=== PATIENT | female | born 1990 | race Hispanic/Latino ===

== ENCOUNTER 2017-07-27 14:39 | Emergency (ER) | payer MEDICAID, OTHER ==
[~2017-07-27 14:39] MED LIST: GLYB5TAB8 PO; PREN1TAB26 PO
[2017-07-27 15:11] LABS: HCG,QUAL RESULT POSITIVE (NEGATIVE)
[2017-07-27 15:12] LABS: APPEARANCE,URINE Clear (CLEAR); BILIRUBIN,URINE Negative (NEGATIVE); COLOR,URINE Yellow (YELLOW); GLUCOSE, URINE (UA) Negative (NEGATIVE); KETONES,URINE Negative (NEGATIVE); LEUKOCYTE ESTERASE ,URINE Small (NEGATIVE); NITRATE,URINE Negative (NEGATIVE); OCCULT BLOOD,URINE Small (NEGATIVE); PROTEIN,URINE Negative (NEGATIVE); UROBILINOGEN,URINE 0.2 mg/dL (0.2-1.0)
[2017-07-27 15:13] LABS: BASOPHILS % (AUTO) 0.8 % (0.0-5.0); EOSINOPHILS % (AUTO) 1.2 % (0.0-8.0); HEMATOCRIT 36.6 % (36-48); LYMPHOCYTES % (AUTO) 32.5 % (21.0-51.0); MEAN CORPUSCULAR HEMOGLOBIN 31.8 pg (27.0-33.0); MEAN CORPUSCULAR VOLUME 90.9 fL (79-99); NEUTROPHILS % (AUTO) 57.5 % (40.0-77.0); NUCLEATED RED BLOOD CELLS 0.1 % (0.0-0.19); PLATELET COUNT (AUTO) 320 K/uL (130-400); RED BLOOD CELL COUNT(AUTO) 4.03 MIL/uL (4.00-5.50); RED CELL DISTRIBUTION WIDTH 12.2 % (11.0-15.5); WHITE BLOOD COUNT (AUTO) 12.6 K/uL (4.8-10.8)
[2017-07-27 15:22] LABS: CREATININE 0.6 mg/dL (0.5-1.5); POTASSIUM 3.5 mmol/L (3.5-5.1)
[2017-07-27 15:25] LABS: BACTERIA,URINE Rare /HPF (None Seen); RBC,URINE 0-1 /HPF (0-1); SQUAMOUS EPITHELIAL CELL,UR Rare /LPF (0-2); WBC,URINE 0-1 /HPF (0-1)
== END 2017-07-27 16:08 | disposition home or self-care (01) ==
LOC: EDH 14:39
DX: O20.0 Threatened abortion (principal); Z3A.01 Less than 8 weeks gestation of pregnancy; Z90.49 Acquired absence of other specified parts of digestive tract
CPT/HCPCS: 36415; 76801; 80048; 81001; 81025; 84702; 85025; 86900; 86901

== ENCOUNTER 2017-11-11 18:21 | Observation (INO) | payer MEDICAID ==
[~2017-11-11] VITALS: Ht 160 cm; Wt 50.8 kg
[2017-11-11 18:57] LABS: APPEARANCE,URINE Clear (CLEAR); BILIRUBIN,URINE Negative (NEGATIVE); COLOR,URINE Yellow (YELLOW); GLUCOSE, URINE (UA) >=1000 mg/dL (NEGATIVE); KETONES,URINE Trace mg/dL (NEGATIVE); LEUKOCYTE ESTERASE ,URINE Trace (NEGATIVE); NITRATE,URINE Negative (NEGATIVE); OCCULT BLOOD,URINE Trace (NEGATIVE); PH,URINE 5.5 (5.0-8.0); PROTEIN,URINE Negative (NEGATIVE); UROBILINOGEN,URINE 0.2 mg/dL (0.2-1.0)
[2017-11-11 20:02] LABS: BACTERIA,URINE Few /HPF (None Seen); RBC,URINE None Seen /HPF (0-1); WBC,URINE 0-1 /HPF (0-1)
[2017-11-11] MEDS ORDERED: LACTATED RINGERS 1000ML 1,000 ML IV SCH (20:15)
[2017-11-11] MEDS ORDERED: LACTATED RINGERS 1000ML 1,000 ML IV ONE (20:38)
[2017-11-11 20:45] LABS: BASOPHILS % (AUTO) 0.7 % (0.0-5.0); EOSINOPHILS % (AUTO) 1.4 % (0.0-8.0); HEMATOCRIT 36.7 % (36-48); LYMPHOCYTES % (AUTO) 24.8 % (21.0-51.0); MEAN CORPUSCULAR HGB CONC 34.4 g/dL (32.0-36.0); MEAN CORPUSCULAR VOLUME 90.3 fL (79-99); MONOCYTES % (AUTO) 8.5 % (3.0-13.0); NEUTROPHILS % (AUTO) 64.6 % (40.0-77.0); PLATELET COUNT (AUTO) 238 K/uL (130-400); RED BLOOD CELL COUNT(AUTO) 4.07 MIL/uL (4.00-5.50); RED CELL DISTRIBUTION WIDTH 12.7 % (11.0-15.5); WHITE BLOOD COUNT (AUTO) 9.4 K/uL (4.8-10.8)
[2017-11-11 20:59] LABS: ALBUMIN 2.8 g/dL (3.5-5.0); BILIRUBIN,DIRECT 0.1 mg/dL (0.0-0.3); BILIRUBIN,TOTAL 0.2 mg/dL (0.2-1.0); TOTAL PROTEIN, SERUM 7.2 g/dL (6.0-8.3)
[2017-11-11] MEDS ORDERED: MAG HYDROX/AL HYDROX/SIMETH ES 30 ML SUSP UDCUP PO SCH (21:45)
[2017-11-11] MEDS ORDERED: MAG HYDROX/AL HYDROX/SIMETH ES 30 ML SUSP UDCUP ONE (21:46)
== END 2017-11-12 00:11 | disposition home or self-care (01) ==
LOC: EDH 18:21 → LDH 18:38
PROVIDERS: ADMIT Obstetrics & Gynecology; ATTEND Obstetrics & Gynecology
DX: O26.892 Other specified pregnancy related conditions, second trimester (principal); R19.7 Diarrhea, unspecified; R10.10 Upper abdominal pain, unspecified; Z3A.21 21 weeks gestation of pregnancy
CPT/HCPCS: 36415; 80076; 81001; 85025; 96360; 96361 ×2; 99285; G0378 ×6; J7120 ×2

== ENCOUNTER 2018-02-10 23:45 | Inpatient (IN) | payer MEDICAID ==
[~2018-02-10] VITALS: Ht 160 cm; Wt 88.0 kg
[~2018-02-10 23:45] MED LIST changes: +ROCURONIUM BROMIDE 10MG/1ML 5ML VL IV ONE; +SODIUM BICARB 8.4% 50ML SYRINGE IVP ONE; +SUCCINYLCHOLINE CHLORIDE 20 MG/ML 10 ML VIAL IVP ONE
[2018-02-11] MEDS ORDERED: LACTATED RINGERS 1000ML 1,000 ML IV PRN (00:02)
[2018-02-11 00:21] LABS: BILIRUBIN,URINE Negative (NEGATIVE); COLOR,URINE Yellow (YELLOW); GLUCOSE, URINE (UA) 500 mg/dL (NEGATIVE); KETONES,URINE 15 mg/dL (NEGATIVE); LEUKOCYTE ESTERASE ,URINE Large (NEGATIVE); NITRATE,URINE Negative (NEGATIVE); OCCULT BLOOD,URINE Trace (NEGATIVE); PROTEIN,URINE Negative (NEGATIVE); UROBILINOGEN,URINE 0.2 mg/dL (0.2-1.0)
[2018-02-11 00:22] LABS: APPEARANCE,URINE SLIGHTLY CLOUDY (CLEAR)
[2018-02-11 00:29] LABS: AMPHET/METH SCREEN,URINE NEGATIVE (NEGATIVE); BARBITURATE SCREEN, URINE NEGATIVE (NEGATIVE); BENZODIAZEPINES SCREEN,URINE NEGATIVE (NEGATIVE); CANNABINOID SCREEN,URINE NEGATIVE (NEGATIVE); COCAINE SCREEN,URINE NEGATIVE (NEGATIVE); OPIATE SCREEN,URINE NEGATIVE (NEGATIVE); PHENCYCLIDINE SCREEN,URINE NEGATIVE (NEGATIVE)
[2018-02-11] MEDS ORDERED: TERBUTALINE SULFATE VIAL 1MG/ML SQ SCH (00:30)
[2018-02-11 00:31] LABS: BACTERIA,URINE Moderate /HPF (None Seen); RBC,URINE 0-1 /HPF (0-1)
[2018-02-11 00:32] LABS: YEAST,URINE BUDDING Rare /HPF (None Seen)
[2018-02-11] MEDS ORDERED: MAGNESIUM 4GM PREMIX 100ML 100 ML IV ONE (00:40)
[2018-02-11] MEDS ORDERED: GLUCAGON 1MG KIT 1 MG ML IM PRN (00:45)
[2018-02-11] MEDS ORDERED: MAGNESIUM SULFATE 1,000 ML IV PRN (00:48)
[2018-02-11] MEDS: LACTATED RINGERS 1000ML 1,000 ML IV SCH ×2 (00:52→16:47)
[2018-02-11] MEDS ORDERED: MAGNESIUM SULFATE 1,000 ML IV ONE (00:58)
[2018-02-11] MEDS ORDERED: MAGNESIUM 4GM PREMIX 100ML 100 ML IV SCH (01:00)
[2018-02-11] MEDS ORDERED: CALCIUM GLUCONATE 1 GM/10 ML VIAL IV PRN (01:00)
[2018-02-11] MEDS ORDERED: INSULIN HUMULIN R 100 UNIT/ML 3ML ONE ×2 (01:00→01:02)
[2018-02-11] MEDS: INSULIN HUMULIN R 100 UNIT/ML 3ML SQ SCH ×2 (01:07→20:48)
[2018-02-11] MEDS: AMPICILLIN 2GM+NS 100ML 100 ML IV SCH ×2 (01:12→06:44)
[2018-02-11 01:23] LABS: HEMATOCRIT 37.4 % (36-48); MEAN CORPUSCULAR HEMOGLOBIN 27.7 pg (27.0-33.0); MEAN CORPUSCULAR HGB CONC 32.4 g/dL (32.0-36.0); MEAN CORPUSCULAR VOLUME 85.5 fL (79-99); PLATELET COUNT (AUTO) 151 K/uL (130-400); RED BLOOD CELL COUNT(AUTO) 4.38 MIL/uL (4.00-5.50); RED CELL DISTRIBUTION WIDTH 14.2 % (11.0-15.5); WHITE BLOOD COUNT (AUTO) 7.9 K/uL (4.8-10.8)
[2018-02-11] MEDS ORDERED: PHARMACY COMMUNICATION MISC SCH (09:00)
[2018-02-11] MEDS: CELESTONE SOLUSPAN 6 MG/ML 5ML VIAL IM SCH (09:23)
[2018-02-11] MEDS ORDERED: ACETAMINOPHEN 325 MG TAB ONE (10:43)
[2018-02-11] MEDS: ACETAMINOPHEN 325 MG TAB PO PRN (20:15)
[2018-02-12] MEDS: INSULIN HUMULIN R 100 UNIT/ML 3ML SQ SCH ×6 (00:37→22:48)
[2018-02-12] MEDS: AMPICILLIN 2GM+NS 100ML 100 ML IV SCH ×4 (00:49→18:58)
[2018-02-12] MEDS ORDERED: MAG HYDROX/AL HYDROX/SIMETH ES 30 ML SUSP UDCUP ONE (02:59)
[2018-02-12 07:15] LABS: RAPID PLASMA REAGIN NONREACTIVE (NONREACTIVE)
[2018-02-12] MEDS: ACETAMINOPHEN 325 MG TAB PO PRN (08:09)
[2018-02-12] MEDS: CELESTONE SOLUSPAN 6 MG/ML 5ML VIAL IM SCH (08:59)
[2018-02-12 10:15] LABS: HEPATITIS Bs ANTIGEN SCREEN P Negative (Negative)
[2018-02-12] MEDS ORDERED: FLUCONAZOLE 100 MG TAB PO SCH (11:00)
[2018-02-12] MEDS: MAG HYDROX/AL HYDROX/SIMETH ES 30 ML SUSP UDCUP PO SCH ×2 (11:45→19:32)
[2018-02-12] MEDS: LACTATED RINGERS 1000ML 1,000 ML IV SCH ×2 (11:46→21:12)
[2018-02-12] MEDS: TRIAMCINOLONE ACETONIDE 0.1% CREAM 15GM TP SCH ×2 (14:26→21:12)
[2018-02-13] MEDS ORDERED: MEPERIDINE-PF 50 MG/ML SYG IM ONE (01:30)
[2018-02-13] MEDS ORDERED: PROMETHAZINE HCL 25 MG/ML 1ML AMPULE IM ONE ×2 (01:30)
[2018-02-13] MEDS ORDERED: MEPERIDINE-PF 50 MG/ML SYG ONE (01:31)
[2018-02-13] MEDS: AMPICILLIN 2GM+NS 100ML 100 ML IV SCH ×6 (01:36→20:08)
[2018-02-13] MEDS: INSULIN HUMULIN R 100 UNIT/ML 3ML SQ SCH ×6 (11:30→21:00)
[2018-02-13] MEDS: TRIAMCINOLONE ACETONIDE 0.1% CREAM 15GM TP SCH ×2 (12:14→21:00)
[2018-02-13] MEDS: INSULIN NPH 100 UNIT/ML 3ML SQ SCH (17:00)
[2018-02-14] VITALS (18 sets, daily range): BP systolic 50–180; BP diastolic 23–94
[2018-02-14] MEDS: AMPICILLIN 2GM+NS 100ML 100 ML IV SCH ×4 (01:00→19:00)
[2018-02-14] MEDS: MAG HYDROX/AL HYDROX/SIMETH ES 30 ML SUSP UDCUP PO SCH (03:00)
[2018-02-14] MEDS: INSULIN HUMULIN R 100 UNIT/ML 3ML SQ SCH ×10 (07:30→21:00)
[2018-02-14] MEDS: INSULIN NPH 100 UNIT/ML 3ML SQ SCH ×2 (07:30→16:30)
[2018-02-14] MEDS ORDERED: OXYTOCIN 10 USP UNITS/ML 20 UNIT in LACTATED RINGERS 1000ML 1,000 ML IV SCH (08:30)
[2018-02-14] MEDS ORDERED: OXYTOCIN-LR 20 UNITS/1000 ML 1,000 ML IV SCH (08:45)
[2018-02-14] MEDS: TRIAMCINOLONE ACETONIDE 0.1% CREAM 15GM TP SCH ×3 (09:00→21:00)
[2018-02-14] MEDS ORDERED: SUCCINYLCHOLINE 200MG/10ML SYR ONE (11:11)
[2018-02-14] MEDS ORDERED: PROPOFOL 10 MG/ML 20ML VIAL IV ONE ×3 (11:11→16:23)
[2018-02-14] MEDS ORDERED: LIDOCAINE PF 2% 5ML ABBOJECT ONE (11:11)
[2018-02-14] MEDS ORDERED: ROCURONIUM 10MG/1ML SYR 10 MG/ML ML ONE ×2 (11:11→20:20)
[2018-02-14] MEDS ORDERED: ONDANSETRON HCL 4 MG/2 ML VIAL ONE (11:11)
[2018-02-14] MEDS ORDERED: NEOSTIGMINE 5MG/5ML SYR IV ONE (11:11)
[2018-02-14] MEDS ORDERED: GLYCOPYRROLATE 0.2 MG/ML 5 ML VIAL ONE (11:11)
[2018-02-14] MEDS ORDERED: DEXAMETHASONE SOD PHOSPHATE 10MG/ML 1ML VIAL ONE (11:11)
[2018-02-14] MEDS ORDERED: MIDAZOLAM HCL 1 MG/ML 2ML VIAL ONE ×2 (11:12→16:19)
[2018-02-14] MEDS ORDERED: FENTANYL CITRATE PF 50 MCG/1 ML 2ML VIAL ONE ×2 (11:13→11:47)
[2018-02-14] MEDS ORDERED: CEFAZOLIN SODIUM 1 GM VIAL ONE (11:14)
[2018-02-14] MEDS ORDERED: NALOXONE HCL 0.4 MG/1 ML ML ONE (11:51)
[2018-02-14] MEDS ORDERED: SUCCINYLCHOLINE CHLORIDE 20 MG/ML 10 ML VIAL ONE (11:54)
[2018-02-14] MEDS ORDERED: CARBOPROST TROMETHAMINE 250 MCG/ML AMP IM ONE ×2 (12:02→13:36)
[2018-02-14 12:28] LABS: BASOPHILS % (AUTO) 0.9 % (0.0-5.0); EOSINOPHILS % (AUTO) 0.2 % (0.0-8.0); HEMATOCRIT 22.4 % (36-48); LYMPHOCYTES % (AUTO) 37.9 % (21.0-51.0); MEAN CORPUSCULAR HEMOGLOBIN 27.5 pg (27.0-33.0); MEAN CORPUSCULAR HGB CONC 31.8 g/dL (32.0-36.0); MEAN CORPUSCULAR VOLUME 86.4 fL (79-99); MONOCYTES % (AUTO) 7.1 % (3.0-13.0); NEUTROPHILS % (AUTO) 53.9 % (40.0-77.0); NUCLEATED RED BLOOD CELLS 0.1 % (0.0-0.19); PLATELET COUNT (AUTO) 185 K/uL (130-400); RED BLOOD CELL COUNT(AUTO) 2.59 MIL/uL (4.00-5.50); RED CELL DISTRIBUTION WIDTH 14.5 % (11.0-15.5); WHITE BLOOD COUNT (AUTO) 13.6 K/uL (4.8-10.8)
[2018-02-14 12:36] LABS: FIBRINOGEN 253 mg/dL (180-350); INR 0.96 (0.85-1.15); PARTIAL THROMBOPLASTIN TIME 27.3 SEC (26.3-35.5); PROTHROMBIN TIME 10.1 SEC (9.6-11.6)
[2018-02-14] MEDS ORDERED: MEPERIDINE-PF 25 MG/ML SYG ONE (13:06)
[2018-02-14] MEDS ORDERED: PHENYLEPHRINE HCL 10 MG/ML 1ML VIAL IV ONE (13:10)
[2018-02-14 13:16] LABS: D-DIMER > 10000 ng/mL (0-500)
[2018-02-14 16:07] LABS: ABG BASE EXCESS -27.5 mmol/L (-2.0-3.0); ABG HCO3 3.3 mmol/L (21.0-28.0); ABG OXYGEN SATURATION 97.1 % (95.0-99.0); ABG PCO2 16 mmHg (32-45)
[2018-02-14 16:21] LABS: HEMATOCRIT 34.4 % (36-48)
[2018-02-14] MEDS ORDERED: METHYLPREDNISOLONE SOD SUCC 125MG/2ML VIAL ONE ×2 (16:22→17:09)
[2018-02-14] MEDS ORDERED: PROPOFOL 1000 MG/100 ML 100 ML IV ONE (16:26)
[2018-02-14] MEDS ORDERED: SODIUM BICARB 50MEQ 50ML VIAL ONE ×7 (16:29→23:40)
[2018-02-14 16:30] LABS: CREATININE 1.5 mg/dL (0.5-1.5); POTASSIUM 4.4 mmol/L (3.5-5.1)
[2018-02-14] MEDS ORDERED: NOREPINEPHRINE 4MG/NS 250ML 250 ML IV SCH (16:30)
[2018-02-14 16:33] LABS: FIBRINOGEN 131 mg/dL (180-350); INR 1.15 (0.85-1.15); PARTIAL THROMBOPLASTIN TIME 36.3 SEC (26.3-35.5)
[2018-02-14 16:38] LABS: ALBUMIN 1.6 g/dL (3.5-5.0); BILIRUBIN,TOTAL 0.5 mg/dL (0.2-1.0); TOTAL PROTEIN, SERUM 5.1 g/dL (6.0-8.3)
[2018-02-14 16:45] LABS: BILIRUBIN,URINE Negative (NEGATIVE); COLOR,URINE Yellow (YELLOW); GLUCOSE, URINE (UA) Negative (NEGATIVE); KETONES,URINE 40 mg/dL (NEGATIVE); LEUKOCYTE ESTERASE ,URINE Trace (NEGATIVE); NITRATE,URINE Negative (NEGATIVE); OCCULT BLOOD,URINE Trace (NEGATIVE); PROTEIN,URINE POS 1+ (NEGATIVE); UROBILINOGEN,URINE 0.2 mg/dL (0.2-1.0)
[2018-02-14 16:46] LABS: APPEARANCE,URINE HAZY (CLEAR)
[2018-02-14 17:02] LABS: D-DIMER > 10000 ng/mL (0-500)
[2018-02-14 17:05] LABS: BACTERIA,URINE Rare /HPF (None Seen); TRANSITIONAL EPI CELLS,URINE Moderate /HPF (None Seen)
[2018-02-14] MEDS ORDERED: EPINEPHRINE 2 MG in SODIUM CHLORIDE 0.9% 250 ML IV SCH (17:15)
[2018-02-14] MEDS ORDERED: ALBUMIN (HUMAN) 5% 250 ML IV ONE (17:27)
[2018-02-14 17:40] LABS: ABG BASE EXCESS -25.9 mmol/L (-2.0-3.0); ABG HCO3 5.8 mmol/L (21.0-28.0); ABG PCO2 34 mmHg (32-45)
[2018-02-14] MEDS ORDERED: SODIUM CHLORIDE 0.9% 500ML 500 ML IV ONE (18:00)
[2018-02-14 18:04] LABS: MEAN CORPUSCULAR HEMOGLOBIN 27.8 pg (27.0-33.0); MEAN CORPUSCULAR HGB CONC 29.2 g/dL (32.0-36.0); MEAN CORPUSCULAR VOLUME 95.2 fL (79-99); PLATELET COUNT (AUTO) 65 K/uL (130-400); RED BLOOD CELL COUNT(AUTO) 1.94 MIL/uL (4.00-5.50); RED CELL DISTRIBUTION WIDTH 15.5 % (11.0-15.5)
[2018-02-14 18:08] LABS: HEMATOCRIT 18.5 % (36-48)
[2018-02-14 18:22] LABS: BILIRUBIN,DIRECT 0.2 mg/dL (0.0-0.3); BILIRUBIN,TOTAL 1.2 mg/dL (0.2-1.0)
[2018-02-14] MEDS ORDERED: EPINEPHRINE 2 MG in DEXTROSE 5%-WATER 250 ML IV PRN (19:00)
[2018-02-14 19:03] LABS: BAND NEUTROPHILS % (MANUAL) 6 % (0-2); LYMPHOCYTES % (MANUAL) 35 % (22-44); MONOCYTES % (MANUAL) 7 % (2-9); REACTIVE LYMPHOCYTES 3 % (0-0); SEGMENTED NEUTROPHILS % 49 % (40-70)
[2018-02-14] MEDS ORDERED: EPINEPHRINE 8 MG in SODIUM CHLORIDE 0.9% 250 ML IV SCH (19:03)
[2018-02-14 19:04] LABS: PLATELET MORPHOLOGY COMMENT DECREASED
[2018-02-14] MEDS ORDERED: EPINEPHRINE 8 MG in DEXTROSE 5%-WATER 250 ML IV PRN (19:15)
[2018-02-14] MEDS ORDERED: NOREPINEPHRINE 4MG/NS 250ML 4 MG/250 ML IV.SOLN IV SCH (19:15)
[2018-02-14] MEDS ORDERED: EPINEPHRINE 8 MG in SODIUM CHLORIDE 0.9% 250 ML IV PRN (19:24)
[2018-02-14 19:44] LABS: ABG BASE EXCESS -18.5 mmol/L (-2.0-3.0); ABG HCO3 9.1 mmol/L (21.0-28.0); ABG OXYGEN SATURATION 98.5 % (95.0-99.0); ABG PCO2 28 mmHg (32-45)
[2018-02-14 19:45] LABS: MEAN CORPUSCULAR HEMOGLOBIN 29.3 pg (27.0-33.0); MEAN CORPUSCULAR HGB CONC 31.1 g/dL (32.0-36.0); PLATELET COUNT (AUTO) 117 K/uL (130-400); RED BLOOD CELL COUNT(AUTO) 2.06 MIL/uL (4.00-5.50); RED CELL DISTRIBUTION WIDTH 15.1 % (11.0-15.5); WHITE BLOOD COUNT (AUTO) 17.6 K/uL (4.8-10.8)
[2018-02-14 19:52] LABS: HEMATOCRIT 19.4 % (36-48); PLATELET COUNT (AUTO) 117 K/uL (130-400)
[2018-02-14] MEDS ORDERED: SODIUM CHLORIDE 0.9% 1000ML 1,000 ML IV ONE (19:52)
[2018-02-14] MEDS ORDERED: SODIUM CHLORIDE 0.9% 500ML 1,000 ML IV ONE (20:01)
[2018-02-14 20:04] LABS: INR 2.33 (0.85-1.15); PROTHROMBIN TIME 24.1 SEC (9.6-11.6)
[2018-02-14 20:23] LABS: ABG BASE EXCESS -16.4 mmol/L (-2.0-3.0); ABG HCO3 11.5 mmol/L (21.0-28.0); ABG OXYGEN SATURATION 98.7 % (95.0-99.0); ABG PCO2 36 mmHg (32-45)
[2018-02-14 20:28] LABS: D-DIMER > 10000 ng/mL (0-500); PARTIAL THROMBOPLASTIN TIME > 120.0 SEC (26.3-35.5)
[2018-02-14] MEDS ORDERED: SODIUM BICARB 8.4% 50ML SYRINGE IVP ONE (20:30)
[2018-02-14] MEDS ORDERED: KETAMINE HCL 50MG/ML 10ML VIAL IJ ONE ×2 (20:30→20:45)
[2018-02-14 20:37] LABS: ABG BASE EXCESS -2.8 mmol/L (-2.0-3.0); ABG HCO3 22.8 mmol/L (21.0-28.0); ABG OXYGEN SATURATION 98.5 % (95.0-99.0); ABG PCO2 43 mmHg (32-45)
[2018-02-14 20:38] LABS: BAND NEUTROPHILS % (MANUAL) 2 % (0-2); CORRECTED WHITE BLOOD COUNT 15.5 K/uL (4.5-11.0); LYMPHOCYTES % (MANUAL) 28 % (22-44); METAMYELOCYTES % 1 % (0-0); MONOCYTES % (MANUAL) 5 % (2-9); MYELOCYTES % 1 % (0-0); NUCLEATED RED BLOOD CELLS 13.3 % (0.0-0.19); PLATELET MORPHOLOGY COMMENT SLIGHTLY DECREASED; REACTIVE LYMPHOCYTES 4 % (0-0); SEGMENTED NEUTROPHILS % 59 % (40-70)
[2018-02-14] MEDS ORDERED: POTASSIUM CHLORIDE 20MEQ/100ML 200 ML IV ONE ×2 (20:39→22:36)
[2018-02-14 20:45] LABS: FIBRINOGEN < 50 mg/dL (180-350)
[2018-02-14 21:00] LABS: ABG BASE EXCESS -12.7 mmol/L (-2.0-3.0); ABG HCO3 14.3 mmol/L (21.0-28.0); ABG OXYGEN SATURATION 97.1 % (95.0-99.0); ABG PCO2 37 mmHg (32-45)
[2018-02-14] MEDS ORDERED: VASOPRESSIN 20 UNITS/ML 1ML VIAL ONE (21:30)
[2018-02-14 21:32] LABS: ABG BASE EXCESS -0.5 mmol/L (-2.0-3.0); ABG HCO3 23.9 mmol/L (21.0-28.0); ABG OXYGEN SATURATION 93.9 % (95.0-99.0); ABG PCO2 38 mmHg (32-45)
[2018-02-14 21:54] LABS: ABG BASE EXCESS -5.9 mmol/L (-2.0-3.0); ABG HCO3 19.9 mmol/L (21.0-28.0); ABG OXYGEN SATURATION 97.6 % (95.0-99.0); ABG PCO2 40 mmHg (32-45)
[2018-02-14 22:37] LABS: ABG BASE EXCESS -8.2 mmol/L (-2.0-3.0); ABG HCO3 17.7 mmol/L (21.0-28.0); ABG OXYGEN SATURATION 98.4 % (95.0-99.0); ABG PCO2 38 mmHg (32-45)
[2018-02-14] MEDS ORDERED: CALCIUM GLUCONATE 1 GM/10 ML VIAL IV ONE (23:00)
[2018-02-14 23:28] LABS: BASOPHILS % (AUTO) 0.3 % (0.0-5.0); CORRECTED WHITE BLOOD COUNT 8.2 K/uL (4.5-11.0); EOSINOPHILS % (AUTO) 0.3 % (0.0-8.0); HEMATOCRIT 30.3 % (36-48); MEAN CORPUSCULAR HEMOGLOBIN 31.2 pg (27.0-33.0); MEAN CORPUSCULAR VOLUME 91.9 fL (79-99); MONOCYTES % (AUTO) 7.4 % (3.0-13.0); NUCLEATED RED BLOOD CELLS 5.9 % (0.0-0.19); PLATELET COUNT (AUTO) 39 K/uL (130-400); RED CELL DISTRIBUTION WIDTH 14.4 % (11.0-15.5); WHITE BLOOD COUNT (AUTO) 8.7 K/uL (4.8-10.8)
[2018-02-14 23:35] LABS: ABG BASE EXCESS -12.6 mmol/L (-2.0-3.0); ABG HCO3 13.3 mmol/L (21.0-28.0); ABG OXYGEN SATURATION 98.6 % (95.0-99.0); ABG PCO2 31 mmHg (32-45)
[2018-02-14 23:46] LABS: INR 1.73 (0.85-1.15); PARTIAL THROMBOPLASTIN TIME 51.5 SEC (26.3-35.5)
[2018-02-15] VITALS (75 sets, daily range): BP systolic 52–166; BP diastolic 38–92
[2018-02-15 00:10] LABS: ALBUMIN 1.7 g/dL (3.5-5.0); BILIRUBIN,TOTAL 2.3 mg/dL (0.2-1.0); CREATININE 1.9 mg/dL (0.5-1.5); MAGNESIUM 1.7 mg/dL (1.80-2.40); PHOSPHORUS 10.6 mg/dL (2.5-4.9); POTASSIUM 4.7 mmol/L (3.5-5.1); TOTAL PROTEIN, SERUM 3.7 g/dL (6.0-8.3)
[2018-02-15] MEDS: LACTATED RINGERS 1000ML 1,000 ML IV SCH (00:13)
[2018-02-15 00:30] LABS: ABG BASE EXCESS -14.1 mmol/L (-2.0-3.0); ABG HCO3 12.2 mmol/L (21.0-28.0); ABG OXYGEN SATURATION 99.5 % (95.0-99.0); ABG PCO2 30 mmHg (32-45)
[2018-02-15] MEDS ORDERED: MAGNESIUM 2GM PREMIX 50ML 50 ML IV ONE (00:39)
[2018-02-15] MEDS: CEFAZOLIN SODIUM 1 GM VIAL IVP SCH ×2 (00:52→06:12)
[2018-02-15] MEDS: METRONIDAZOLE 500MG/100ML BAG 100 ML IV SCH ×4 (00:52→23:25)
[2018-02-15] MEDS: METHYLPREDNISOLONE SOD SUCC 125MG/2ML VIAL IVP SCH ×4 (00:52→19:43)
[2018-02-15] MEDS: ZOSYN 3.375GM+NS 50ML 50 ML IV SCH ×3 (00:53→17:16)
[2018-02-15 01:08] LABS: ABG BASE EXCESS -17.7 mmol/L (-2.0-3.0); ABG HCO3 9.6 mmol/L (21.0-28.0); ABG PCO2 28 mmHg (32-45)
[2018-02-15] MEDS ORDERED: DEXTROSE 5%-WATER 1,000 ML IV ONE (01:55)
[2018-02-15] MEDS ORDERED: SODIUM BICARB 50MEQ 50ML VIAL ONE ×2 (01:56→06:29)
[2018-02-15] MEDS: SODIUM BICARB 8.4% 50ML SYRING 150 MEQ in DEXTROSE 5%-WATER 1,000 ML IV SCH ×3 (02:15→22:21)
[2018-02-15 02:20] LABS: BASOPHILS % (AUTO) 4.4 % (0.0-5.0); CORRECTED WHITE BLOOD COUNT 10.4 K/uL (4.5-11.0); EOSINOPHILS % (AUTO) 0.5 % (0.0-8.0); HEMATOCRIT 27.8 % (36-48); LYMPHOCYTES % (AUTO) 11.8 % (21.0-51.0); MEAN CORPUSCULAR HEMOGLOBIN 29.6 pg (27.0-33.0); MEAN CORPUSCULAR HGB CONC 31.3 g/dL (32.0-36.0); MEAN CORPUSCULAR VOLUME 94.6 fL (79-99); MONOCYTES % (AUTO) 5.4 % (3.0-13.0); NEUTROPHILS % (AUTO) 77.9 % (40.0-77.0); NUCLEATED RED BLOOD CELLS 5.6 % (0.0-0.19); PLATELET COUNT (AUTO) 39 K/uL (130-400); RED BLOOD CELL COUNT(AUTO) 2.94 MIL/uL (4.00-5.50); RED CELL DISTRIBUTION WIDTH 14.9 % (11.0-15.5)
[2018-02-15] MEDS: AMPICILLIN 2GM+NS 100ML 100 ML IV SCH (02:45)
[2018-02-15] MEDS: MAG HYDROX/AL HYDROX/SIMETH ES 30 ML SUSP UDCUP PO SCH ×2 (02:46→20:58)
[2018-02-15 04:09] LABS: INR 2.07 (0.85-1.15); PARTIAL THROMBOPLASTIN TIME 50.9 SEC (26.3-35.5); PROTHROMBIN TIME 21.4 SEC (9.6-11.6)
[2018-02-15 04:22] LABS: ALBUMIN 1.4 g/dL (3.5-5.0); BILIRUBIN,TOTAL 2.1 mg/dL (0.2-1.0); CREATININE 2.3 mg/dL (0.5-1.5); HEMATOCRIT 25.4 % (36-48); MEAN CORPUSCULAR HEMOGLOBIN 31.1 pg (27.0-33.0); MEAN CORPUSCULAR HGB CONC 33.4 g/dL (32.0-36.0); MEAN CORPUSCULAR VOLUME 93.3 fL (79-99); PLATELET COUNT (AUTO) 78 K/uL (130-400); POTASSIUM 4.2 mmol/L (3.5-5.1); RED BLOOD CELL COUNT(AUTO) 2.72 MIL/uL (4.00-5.50); RED CELL DISTRIBUTION WIDTH 14.7 % (11.0-15.5); TOTAL PROTEIN, SERUM 3.2 g/dL (6.0-8.3); WHITE BLOOD COUNT (AUTO) 11.8 K/uL (4.8-10.8)
[2018-02-15 04:37] LABS: D-DIMER > 10000 ng/mL (0-500)
[2018-02-15 04:38] LABS: BAND NEUTROPHILS % (MANUAL) 9 % (0-2); LYMPHOCYTES % (MANUAL) 16 % (22-44); MAN.DIFF COMMENT-IMPRESSION MANUAL DIFFERENTIAL; MONOCYTES % (MANUAL) 8 % (2-9); SEGMENTED NEUTROPHILS % 67 % (40-70)
[2018-02-15 04:40] LABS: PLATELET MORPHOLOGY COMMENT MARKED DECREASED
[2018-02-15 05:39] LABS: FIBRINOGEN 183 mg/dL (180-350)
[2018-02-15] MEDS: DEXTROSE 50%-WATER 50 ML DISP.SYRIN IV PRN (05:50)
[2018-02-15 06:03] LABS: PLATELET COUNT (AUTO) 78 K/uL (130-400)
[2018-02-15] MEDS: NOREPINEPHRINE BITARTRATE 8 MG in SODIUM CHLORIDE 0.9% 250 ML IV SCH ×2 (07:20→13:55)
[2018-02-15] MEDS: INSULIN NPH 100 UNIT/ML 3ML SQ SCH (07:20)
[2018-02-15] MEDS: INSULIN HUMULIN R 100 UNIT/ML 3ML SQ SCH ×5 (07:21→11:30)
[2018-02-15] MEDS ORDERED: ALBUMIN (HUMAN) 5% 250 ML IV ONE (07:33)
[2018-02-15] MEDS ORDERED: ALBUMIN (HUMAN) 5% 250 ML IV SCH (08:00)
[2018-02-15 08:08] LABS: CORRECTED WHITE BLOOD COUNT 14.4 K/uL (4.5-11.0); HEMATOCRIT 22.6 % (36-48); MEAN CORPUSCULAR HEMOGLOBIN 30.6 pg (27.0-33.0); MEAN CORPUSCULAR HGB CONC 32.6 g/dL (32.0-36.0); MEAN CORPUSCULAR VOLUME 94.1 fL (79-99); NUCLEATED RED BLOOD CELLS 4.7 % (0.0-0.19); PLATELET COUNT (AUTO) 139 K/uL (130-400); RED CELL DISTRIBUTION WIDTH 15.3 % (11.0-15.5); WHITE BLOOD COUNT (AUTO) 15.1 K/uL (4.8-10.8)
[2018-02-15 08:21] LABS: FIBRINOGEN 180 mg/dL (180-350); INR 2.07 (0.85-1.15); PARTIAL THROMBOPLASTIN TIME 45.2 SEC (26.3-35.5); PROTHROMBIN TIME 21.4 SEC (9.6-11.6)
[2018-02-15 08:38] LABS: PLATELET COUNT (AUTO) 139 K/uL (130-400)
[2018-02-15] MEDS ORDERED: SODIUM CHLORIDE 0.9% 500ML 500 ML IV ONE (08:47)
[2018-02-15] MEDS: TRIAMCINOLONE ACETONIDE 0.1% CREAM 15GM TP SCH ×3 (09:00→20:57)
[2018-02-15 09:17] LABS: BAND NEUTROPHILS % (MANUAL) 1 % (0-2); LYMPHOCYTES % (MANUAL) 28 % (22-44); MAN.DIFF COMMENT-IMPRESSION MANUAL DIFFERENTIAL; MONOCYTES % (MANUAL) 2 % (2-9); SEGMENTED NEUTROPHILS % 69 % (40-70)
[2018-02-15 09:29] LABS: D-DIMER > 10000 ng/mL (0-500)
[2018-02-15] MEDS ORDERED: DEXTROSE 5%-WATER 2,000 ML IV ONE (09:29)
[2018-02-15] MEDS ORDERED: LORAZEPAM 2 MG/ML 1 ML VIAL ONE (09:34)
[2018-02-15] MEDS ORDERED: LORAZEPAM 2 MG/ML 1 ML VIAL IVP SCH (09:40)
[2018-02-15] MEDS: DEXTROSE 5%-WATER 1,000 ML IV SCH ×3 (09:55→17:17)
[2018-02-15] MEDS: PANTOPRAZOLE 40 MG/VIAL IVP SCH (10:00)
[2018-02-15] MEDS ORDERED: DEXTROSE 50%-WATER 50 ML DISP.SYRIN IV PRN (10:00)
[2018-02-15] MEDS ORDERED: GLUCAGON 1MG KIT 1 MG ML IM PRN (10:00)
[2018-02-15 11:07] LABS: ABG HCO3 9.8 mmol/L (21.0-28.0); ABG OXYGEN SATURATION 90.1 % (95.0-99.0); ABG PCO2 27 mmHg (32-45)
[2018-02-15] MEDS ORDERED: CALCIUM GLUCONATE 1 GM/10 ML VIAL IV STA (11:12)
[2018-02-15] MEDS ORDERED: INSULIN HUMULIN R 100 UNIT/ML 3ML SQ SCH ×2 (11:30→15:00)
[2018-02-15 11:37] LABS: CORRECTED WHITE BLOOD COUNT 13.2 K/uL (4.5-11.0); MEAN CORPUSCULAR HEMOGLOBIN 31.2 pg (27.0-33.0); MEAN CORPUSCULAR HGB CONC 33.6 g/dL (32.0-36.0); MEAN CORPUSCULAR VOLUME 92.8 fL (79-99); NUCLEATED RED BLOOD CELLS 4.6 % (0.0-0.19); RED BLOOD CELL COUNT(AUTO) 1.7 MIL/uL (4.00-5.50); RED CELL DISTRIBUTION WIDTH 15.5 % (11.0-15.5); WHITE BLOOD COUNT (AUTO) 13.8 K/uL (4.8-10.8)
[2018-02-15 11:43] LABS: HEMATOCRIT 15.8 % (36-48)
[2018-02-15] MEDS ORDERED: CALCIUM GLUCONATE 2 GM in SODIUM CHLORIDE 0.9% 50 ML IV ONE (12:00)
[2018-02-15] MEDS: LORAZEPAM 2 MG/ML 1 ML VIAL IVP PRN ×2 (12:11→14:22)
[2018-02-15] MEDS ORDERED: LEVETIRACETAM 500 MG in SODIUM CHLORIDE 0.9% 100 ML IV STA (12:13)
[2018-02-15] MEDS ORDERED: PHARMACY COMMUNICATION MISC SCH (12:15)
[2018-02-15 12:17] LABS: INR 1.44 (0.85-1.15)
[2018-02-15] MEDS ORDERED: LEVETIRACETAM 1,000 MG in SODIUM CHLORIDE 0.9% 100 ML IV ONE (12:30)
[2018-02-15] MEDS ORDERED: LEVETIRACETAM 500 MG in SODIUM CHLORIDE 0.9% 100 ML IV ONE (12:30)
[2018-02-15 13:08] LABS: CREATININE 2.9 mg/dL (0.5-1.5); POTASSIUM 3.7 mmol/L (3.5-5.1)
[2018-02-15] MEDS: PROPOFOL 1000 MG/100 ML IV PRN ×5 (13:15→22:24)
[2018-02-15 14:25] LABS: ACETONE,BLOOD NEGATIVE (NEGATIVE)
[2018-02-15 14:30] LABS: HEMATOCRIT 27.3 % (36-48)
[2018-02-15] MEDS: VASOPRESSIN 20 UNITS in DEXTROSE 5%-WATER 50 ML IV SCH (14:51)
[2018-02-15] MEDS: PHENYLEPHRINE HCL 50 MG in SODIUM CHLORIDE 0.9% 250 ML IV SCH (14:51)
[2018-02-15] MEDS ORDERED: CALCIUM GLUCONATE 1 GM/10 ML VIAL IV PRN (15:15)
[2018-02-15] MEDS ORDERED: DEXTROSE 5% IV PRN (15:30)
[2018-02-15] MEDS ORDERED: CALCIUM GLUCONATE IV PRN (15:30)
[2018-02-15] MEDS ORDERED: WATER IV PRN (15:30)
[2018-02-15 15:58] LABS: ABG BASE EXCESS -12.9 mmol/L (-2.0-3.0); ABG OXYGEN SATURATION 97.1 % (95.0-99.0); ABG PCO2 26 mmHg (32-45)
[2018-02-15 16:07] LABS: CREATININE 3.4 mg/dL (0.5-1.5); INR 1.48 (0.85-1.15); PARTIAL THROMBOPLASTIN TIME 31.7 SEC (26.3-35.5); PROTHROMBIN TIME 15.4 SEC (9.6-11.6)
[2018-02-15] MEDS ORDERED: SODIUM CHLORIDE 0.9% 250 ML IV ONE ×2 (16:19→21:33)
[2018-02-15] MEDS: FENTANYL 2500MCG+NS 250ML 250 ML IV PRN (18:20)
[2018-02-15 20:17] LABS: ABG BASE EXCESS -5.1 mmol/L (-2.0-3.0); ABG HCO3 17.9 mmol/L (21.0-28.0); ABG OXYGEN SATURATION 97.5 % (95.0-99.0); ABG PCO2 29 mmHg (32-45)
[2018-02-15 20:25] LABS: HEMATOCRIT 28.9 % (36-48); MEAN CORPUSCULAR HEMOGLOBIN 33.4 pg (27.0-33.0); MEAN CORPUSCULAR VOLUME 90.5 fL (79-99); NUCLEATED RED BLOOD CELLS 4.8 % (0.0-0.19); RED BLOOD CELL COUNT(AUTO) 3.2 MIL/uL (4.00-5.50); RED CELL DISTRIBUTION WIDTH 15.2 % (11.0-15.5); WHITE BLOOD COUNT (AUTO) 13.6 K/uL (4.8-10.8)
[2018-02-15 20:40] LABS: CREATININE 3.7 mg/dL (0.5-1.5); POTASSIUM 4.2 mmol/L (3.5-5.1)
[2018-02-15 20:42] LABS: INR 1.37 (0.85-1.15); PARTIAL THROMBOPLASTIN TIME 29.7 SEC (26.3-35.5); PROTHROMBIN TIME 14.3 SEC (9.6-11.6)
[2018-02-15] MEDS: INSULIN IV SS2 SQ PRN ×2 (20:56)
[2018-02-15 21:53] LABS: FIBRINOGEN < 50 mg/dL (180-350)
[2018-02-15] MEDS ORDERED: MAGNESIUM 4GM PREMIX 100ML 100 ML IV ONE (22:30)
[2018-02-15] MEDS: LEVETIRACETAM 500 MG in SODIUM CHLORIDE 0.9% 100 ML IV SCH (23:25)
[2018-02-16] VITALS (47 sets, daily range): BP systolic 95–155; BP diastolic 57–97
[2018-02-16 01:02] LABS: ABG BASE EXCESS 2.6 mmol/L (-2.0-3.0); ABG HCO3 24.4 mmol/L (21.0-28.0); ABG OXYGEN SATURATION 99.3 % (95.0-99.0); ABG PCO2 30 mmHg (32-45)
[2018-02-16] MEDS: PROPOFOL 1000 MG/100 ML IV PRN ×3 (01:19→05:59)
[2018-02-16] MEDS: ZOSYN 3.375GM+NS 50ML 50 ML IV SCH ×3 (01:19→17:09)
[2018-02-16 01:24] LABS: POTASSIUM 3.6 mmol/L (3.5-5.1)
[2018-02-16 01:26] LABS: PARTIAL THROMBOPLASTIN TIME 29.4 SEC (26.3-35.5)
[2018-02-16] MEDS: VASOPRESSIN 20 UNITS in DEXTROSE 5%-WATER 50 ML IV SCH ×2 (01:41→14:30)
[2018-02-16 01:50] LABS: CORRECTED WHITE BLOOD COUNT 11.2 K/uL (4.5-11.0); MEAN CORPUSCULAR HEMOGLOBIN 33.3 pg (27.0-33.0); MEAN CORPUSCULAR HGB CONC 37.3 g/dL (32.0-36.0); MEAN CORPUSCULAR VOLUME 89.2 fL (79-99); NUCLEATED RED BLOOD CELLS 16.7 % (0.0-0.19); PLATELET COUNT (AUTO) 91 K/uL (130-400); RED BLOOD CELL COUNT(AUTO) 3.03 MIL/uL (4.00-5.50); RED CELL DISTRIBUTION WIDTH 15.3 % (11.0-15.5); WHITE BLOOD COUNT (AUTO) 13.1 K/uL (4.8-10.8)
[2018-02-16 03:33] LABS: BAND NEUTROPHILS % (MANUAL) 17 % (0-2); EOSINOPHILS % (MANUAL) 1 % (1-6); LYMPHOCYTES % (MANUAL) 2 % (22-44); MAN.DIFF COMMENT-IMPRESSION MANUAL DIFFERENTIAL; METAMYELOCYTES % 2 % (0-0); MONOCYTES % (MANUAL) 2 % (2-9); SEGMENTED NEUTROPHILS % 76 % (40-70)
[2018-02-16 03:34] LABS: PLATELET MORPHOLOGY COMMENT DECREASED
[2018-02-16] MEDS: INSULIN IV SS2 SQ PRN ×2 (03:45)
[2018-02-16] MEDS: METHYLPREDNISOLONE SOD SUCC 125MG/2ML VIAL IVP SCH ×3 (03:46→20:05)
[2018-02-16 05:16] LABS: ABG BASE EXCESS 2.9 mmol/L (-2.0-3.0); ABG HCO3 23.6 mmol/L (21.0-28.0); ABG OXYGEN SATURATION 99.6 % (95.0-99.0); ABG PCO2 27 mmHg (32-45)
[2018-02-16 05:41] LABS: CORRECTED WHITE BLOOD COUNT 11.9 K/uL (4.5-11.0); MEAN CORPUSCULAR HEMOGLOBIN 34.4 pg (27.0-33.0); MEAN CORPUSCULAR HGB CONC 39.2 g/dL (32.0-36.0); MEAN CORPUSCULAR VOLUME 87.8 fL (79-99); NUCLEATED RED BLOOD CELLS 9.7 % (0.0-0.19); PLATELET COUNT (AUTO) 71 K/uL (130-400); RED BLOOD CELL COUNT(AUTO) 2.96 MIL/uL (4.00-5.50); RED CELL DISTRIBUTION WIDTH 15.2 % (11.0-15.5)
[2018-02-16 05:55] LABS: ALBUMIN 1.8 g/dL (3.5-5.0); BILIRUBIN,TOTAL 2.1 mg/dL (0.2-1.0); CREATININE 4.5 mg/dL (0.5-1.5); MAGNESIUM 2.1 mg/dL (1.80-2.40); PHOSPHORUS 3.3 mg/dL (2.5-4.9); POTASSIUM 3.3 mmol/L (3.5-5.1)
[2018-02-16 06:55] LABS: TOTAL PROTEIN, SERUM 3.8 g/dL (6.0-8.3)
[2018-02-16 06:56] LABS: URIC ACID 12.2 mg/dL (2.6-7.2)
[2018-02-16 07:26] LABS: BAND NEUTROPHILS % (MANUAL) 4 % (0-2); LYMPHOCYTES % (MANUAL) 3 % (22-44); MAN.DIFF COMMENT-IMPRESSION MANUAL DIFFERENTIAL; MONOCYTES % (MANUAL) 4 % (2-9); SEGMENTED NEUTROPHILS % 89 % (40-70)
[2018-02-16 07:27] LABS: PLATELET MORPHOLOGY COMMENT DECREASED
[2018-02-16] MEDS: METRONIDAZOLE 500MG/100ML BAG 100 ML IV SCH ×2 (08:00→17:09)
[2018-02-16 08:20] LABS: HEMATOCRIT 26.2 % (36-48); MEAN CORPUSCULAR HEMOGLOBIN 34.5 pg (27.0-33.0); MEAN CORPUSCULAR HGB CONC 39.2 g/dL (32.0-36.0); MEAN CORPUSCULAR VOLUME 87.9 fL (79-99); NUCLEATED RED BLOOD CELLS 9.5 % (0.0-0.19); RED BLOOD CELL COUNT(AUTO) 2.97 MIL/uL (4.00-5.50); RED CELL DISTRIBUTION WIDTH 15.2 % (11.0-15.5); WHITE BLOOD COUNT (AUTO) 13.1 K/uL (4.8-10.8)
[2018-02-16] MEDS: LORAZEPAM 2 MG/ML 1 ML VIAL IVP PRN (08:28)
[2018-02-16] MEDS: PANTOPRAZOLE 40 MG/VIAL IVP SCH (09:06)
[2018-02-16] MEDS: ARTIFICAL TEARS SOL 15 ML OU SCH ×2 (09:06→20:11)
[2018-02-16 10:26] LABS: ABG BASE EXCESS 7.3 mmol/L (-2.0-3.0); ABG HCO3 31.3 mmol/L (21.0-28.0); ABG OXYGEN SATURATION 96.6 % (95.0-99.0); ABG PCO2 42 mmHg (32-45)
[2018-02-16] MEDS ORDERED: FUROSEMIDE 10 MG/ML 4ML VIAL IV SCH ×2 (11:00→11:15)
[2018-02-16 11:11] LABS: CORRECTED WHITE BLOOD COUNT 12.8 K/uL (4.5-11.0); HEMATOCRIT 26.1 % (36-48); MEAN CORPUSCULAR HEMOGLOBIN 32.4 pg (27.0-33.0); MEAN CORPUSCULAR HGB CONC 36.8 g/dL (32.0-36.0); NUCLEATED RED BLOOD CELLS 9.3 % (0.0-0.19); RED BLOOD CELL COUNT(AUTO) 2.97 MIL/uL (4.00-5.50); RED CELL DISTRIBUTION WIDTH 15.3 % (11.0-15.5)
[2018-02-16 11:16] LABS: CREATININE 4.7 mg/dL (0.5-1.5); POTASSIUM 3.6 mmol/L (3.5-5.1)
[2018-02-16] MEDS ORDERED: COMPOUND IV MISC 1 EACH IVSOLN MISC PRN (11:45)
[2018-02-16] MEDS ORDERED: SODIUM CHLORIDE 0.9% 1000ML 1,000 ML IV ONE (12:27)
[2018-02-16] MEDS: FENTANYL 2500MCG+NS 250ML 250 ML IV PRN (12:33)
[2018-02-16 13:20] LABS: ABG BASE EXCESS -22.8 mmol/L (-2.0-3.0); ABG HCO3 7.2 mmol/L (21.0-28.0); ABG OXYGEN SATURATION 96.8 % (95.0-99.0); ABG PCO2 29 mmHg (32-45)
[2018-02-16] MEDS ORDERED: POTASSIUM CHLORIDE 20 MEQ/100 ML BAG IV SCH (13:30)
[2018-02-16] MEDS: PHENYLEPHRINE HCL 50 MG in SODIUM CHLORIDE 0.9% 250 ML IV SCH (13:31)
[2018-02-16] MEDS ORDERED: POTASSIUM CHLORIDE 20MEQ/100ML 100 ML IV SCH (13:45)
[2018-02-16] MEDS: LEVETIRACETAM 500 MG in SODIUM CHLORIDE 0.9% 100 ML IV SCH (13:49)
[2018-02-16] MEDS: CALCIUM GLUCONATE 2 GM in SODIUM CHLORIDE 0.9% 50 ML IV PRN (13:52)
[2018-02-16] MEDS ORDERED: ROCURONIUM 10MG/1ML SYR 10 MG/ML ML ONE (14:14)
[2018-02-16] MEDS ORDERED: EPHEDRINE SULFATE 50 MG/ML AMPULE ONE (14:14)
[2018-02-16] MEDS ORDERED: FENTANYL CITRATE PF 50 MCG/1 ML 5ML AMP IV ONE (14:15)
[2018-02-16] MEDS ORDERED: MIDAZOLAM HCL 1 MG/ML 2ML VIAL ONE (14:21)
[2018-02-16] MEDS ORDERED: KETAMINE 50MG/ML SYRINGE 50 MG/ML DISP.SYRIN IV ONE (14:24)
[2018-02-16] MEDS ORDERED: SODIUM CHLORIDE 0.9% 10 ML VIAL ONE (14:27)
[2018-02-16] MEDS ORDERED: THROMBIN-JMI 20000 UNIT KIT TP ONE (15:03)
[2018-02-16 15:11] LABS: ABG BASE EXCESS 15.2 mmol/L (-2.0-3.0); ABG HCO3 38.5 mmol/L (21.0-28.0); ABG OXYGEN SATURATION 97.6 % (95.0-99.0); ABG PCO2 42 mmHg (32-45)
[2018-02-16 18:12] LABS: CORRECTED WHITE BLOOD COUNT 12.4 K/uL (4.5-11.0); HEMATOCRIT 26.1 % (36-48); MEAN CORPUSCULAR HEMOGLOBIN 30.4 pg (27.0-33.0); MEAN CORPUSCULAR HGB CONC 34.4 g/dL (32.0-36.0); MEAN CORPUSCULAR VOLUME 88.2 fL (79-99); NUCLEATED RED BLOOD CELLS 7.2 % (0.0-0.19); RED BLOOD CELL COUNT(AUTO) 2.96 MIL/uL (4.00-5.50); WHITE BLOOD COUNT (AUTO) 13.3 K/uL (4.8-10.8)
[2018-02-16 18:14] LABS: ABG BASE EXCESS 13.9 mmol/L (-2.0-3.0); ABG HCO3 33.4 mmol/L (21.0-28.0); ABG OXYGEN SATURATION 99.4 % (95.0-99.0); ABG PCO2 27 mmHg (32-45)
[2018-02-16 18:21] LABS: CREATININE 4.8 mg/dL (0.5-1.5); POTASSIUM 4.1 mmol/L (3.5-5.1)
[2018-02-16] MEDS: TRIAMCINOLONE ACETONIDE 0.1% CREAM 15GM TP SCH ×2 (19:00→21:00)
[2018-02-16] MEDS: NOREPINEPHRINE BITARTRATE 8 MG in SODIUM CHLORIDE 0.9% 250 ML IV SCH (19:01)
[2018-02-16 19:43] LABS: ABG BASE EXCESS 10.4 mmol/L (-2.0-3.0); ABG HCO3 33.6 mmol/L (21.0-28.0); ABG OXYGEN SATURATION 99.4 % (95.0-99.0); ABG PCO2 40 mmHg (32-45)
[2018-02-16] MEDS: THIAMINE HCL 100 MG/ML 2ML VIAL IVP SCH (20:02)
[2018-02-16 21:13] LABS: ABG BASE EXCESS 7.5 mmol/L (-2.0-3.0); ABG HCO3 34.3 mmol/L (21.0-28.0); ABG OXYGEN SATURATION 96.4 % (95.0-99.0); ABG PCO2 57 mmHg (32-45)
[2018-02-17] VITALS (61 sets, daily range): BP systolic 0–131; BP diastolic 0–91
[2018-02-17] MEDS: METRONIDAZOLE 500MG/100ML BAG 100 ML IV SCH ×3 (00:12→17:05)
[2018-02-17] MEDS: LEVETIRACETAM 500 MG in SODIUM CHLORIDE 0.9% 100 ML IV SCH ×3 (00:27→23:25)
[2018-02-17] MEDS: ZOSYN 3.375GM+NS 50ML 50 ML IV SCH ×3 (00:58→17:05)
[2018-02-17] MEDS: MAG HYDROX/AL HYDROX/SIMETH ES 30 ML SUSP UDCUP PO SCH (00:59)
[2018-02-17] MEDS: VASOPRESSIN 20 UNITS in DEXTROSE 5%-WATER 50 ML IV SCH (02:27)
[2018-02-17] MEDS: FENTANYL 2500MCG+NS 250ML 250 ML IV PRN (03:48)
[2018-02-17] MEDS: METHYLPREDNISOLONE SOD SUCC 125MG/2ML VIAL IVP SCH ×2 (03:48→11:12)
[2018-02-17 04:55] LABS: ABG BASE EXCESS 7.7 mmol/L (-2.0-3.0); ABG HCO3 33.2 mmol/L (21.0-28.0); ABG OXYGEN SATURATION 96.8 % (95.0-99.0); ABG PCO2 52 mmHg (32-45)
[2018-02-17 05:23] LABS: CORRECTED WHITE BLOOD COUNT 14.2 K/uL (4.5-11.0); HEMATOCRIT 26.3 % (36-48); MEAN CORPUSCULAR HEMOGLOBIN 30.6 pg (27.0-33.0); MEAN CORPUSCULAR HGB CONC 34.3 g/dL (32.0-36.0); MEAN CORPUSCULAR VOLUME 89.3 fL (79-99); RED BLOOD CELL COUNT(AUTO) 2.95 MIL/uL (4.00-5.50); RED CELL DISTRIBUTION WIDTH 15.1 % (11.0-15.5); WHITE BLOOD COUNT (AUTO) 15.1 K/uL (4.8-10.8)
[2018-02-17 05:46] LABS: ALBUMIN 1.7 g/dL (3.5-5.0); BILIRUBIN,TOTAL 1.1 mg/dL (0.2-1.0); CREATININE 5.6 mg/dL (0.5-1.5); MAGNESIUM 2.2 mg/dL (1.80-2.40); PHOSPHORUS 7.5 mg/dL (2.5-4.9); POTASSIUM 5.3 mmol/L (3.5-5.1); TOTAL PROTEIN, SERUM 4.3 g/dL (6.0-8.3)
[2018-02-17] MEDS: MIDAZOLAM 100MG-0.9% NS 100ML 100 ML IV PRN (06:35)
[2018-02-17] MEDS: CALCIUM GLUCONATE 2 GM in SODIUM CHLORIDE 0.9% 50 ML IV PRN (06:57)
[2018-02-17] MEDS: PHENYLEPHRINE HCL 50 MG in SODIUM CHLORIDE 0.9% 250 ML IV SCH (07:50)
[2018-02-17 07:51] LABS: FIBRINOGEN 306 mg/dL (180-350); INR 1.11 (0.85-1.15); PARTIAL THROMBOPLASTIN TIME 30.1 SEC (26.3-35.5); PROTHROMBIN TIME 11.6 SEC (9.6-11.6)
[2018-02-17] MEDS: THIAMINE HCL 100 MG/ML 2ML VIAL IVP SCH (08:14)
[2018-02-17] MEDS: PANTOPRAZOLE 40 MG/VIAL IVP SCH (08:14)
[2018-02-17] MEDS: ARTIFICAL TEARS SOL 15 ML OU SCH ×2 (08:15→21:07)
[2018-02-17 08:18] LABS: D-DIMER > 10000 ng/mL (0-500); PLATELET COUNT (AUTO) 36 K/uL (130-400)
[2018-02-17] MEDS: TRIAMCINOLONE ACETONIDE 0.1% CREAM 15GM TP SCH ×3 (09:00→21:00)
[2018-02-17] MEDS ORDERED: SODIUM CHLORIDE 0.9% 500ML 500 ML IV ONE ×2 (09:33→10:21)
[2018-02-17] MEDS ORDERED: SODIUM CHLORIDE 0.9% 1000ML 1,000 ML IV ONE (14:33)
[2018-02-17] MEDS ORDERED: ALBUMIN (HUMAN) 25% 100 ML IV PRN (15:00)
[2018-02-17] MEDS ORDERED: SODIUM CHLORIDE 0.9% 1000ML 1,000 ML IV PRN (15:00)
[2018-02-17] MEDS ORDERED: INSULIN GLARGINE 100 UNITS/ML 10 ML VIAL SQ SCH (15:00)
[2018-02-17] MEDS ORDERED: 0.9% SODIUM CHLORIDE 250 ML IV BAG IV PRN (15:00)
[2018-02-17] MEDS: INSULIN HUMULIN R 100 UNIT/ML 3ML SQ SCH ×2 (16:30→21:00)
[2018-02-18] VITALS (27 sets, daily range): BP systolic 104–156; BP diastolic 59–95
[2018-02-18] MEDS: METRONIDAZOLE 500MG/100ML BAG 100 ML IV SCH ×3 (00:07→15:15)
[2018-02-18] MEDS: INSULIN HUMULIN R 100 UNIT/ML 3ML SQ SCH ×4 (00:15→18:00)
[2018-02-18] MEDS: ZOSYN 3.375GM+NS 50ML 50 ML IV SCH ×3 (00:25→18:32)
[2018-02-18] MEDS: MAG HYDROX/AL HYDROX/SIMETH ES 30 ML SUSP UDCUP PO SCH (00:26)
[2018-02-18] MEDS: MIDAZOLAM 100MG-0.9% NS 100ML 100 ML IV PRN (02:28)
[2018-02-18] MEDS: FENTANYL 2500MCG+NS 250ML 250 ML IV PRN (04:18)
[2018-02-18 04:33] LABS: MEAN CORPUSCULAR HEMOGLOBIN 29.5 pg (27.0-33.0); MEAN CORPUSCULAR HGB CONC 32.3 g/dL (32.0-36.0); MEAN CORPUSCULAR VOLUME 91.4 fL (79-99); NUCLEATED RED BLOOD CELLS 3.9 % (0.0-0.19); PLATELET COUNT (AUTO) 35 K/uL (130-400); RED BLOOD CELL COUNT(AUTO) 2.51 MIL/uL (4.00-5.50); RED CELL DISTRIBUTION WIDTH 15.2 % (11.0-15.5); WHITE BLOOD COUNT (AUTO) 16.9 K/uL (4.8-10.8)
[2018-02-18 04:45] LABS: INR 1.05 (0.85-1.15); PARTIAL THROMBOPLASTIN TIME 26.7 SEC (26.3-35.5)
[2018-02-18 05:00] LABS: ALBUMIN 1.7 g/dL (3.5-5.0); BILIRUBIN,TOTAL 0.9 mg/dL (0.2-1.0); CREATININE 5.8 mg/dL (0.5-1.5); MAGNESIUM 2.3 mg/dL (1.80-2.40); PHOSPHORUS 8.8 mg/dL (2.5-4.9); POTASSIUM 5.6 mmol/L (3.5-5.1); TOTAL PROTEIN, SERUM 4.4 g/dL (6.0-8.3)
[2018-02-18 07:35] LABS: HEPATITIS Bs ANTIGEN SCREEN P Negative (Negative)
[2018-02-18] MEDS: ARTIFICAL TEARS SOL 15 ML OU SCH ×2 (08:20→21:02)
[2018-02-18] MEDS: THIAMINE HCL 100 MG/ML 2ML VIAL IVP SCH (08:20)
[2018-02-18] MEDS: TRIAMCINOLONE ACETONIDE 0.1% CREAM 15GM TP SCH ×3 (08:20→21:03)
[2018-02-18] MEDS: PANTOPRAZOLE 40 MG/VIAL IVP SCH (08:20)
[2018-02-18] MEDS: LEVETIRACETAM 500 MG in SODIUM CHLORIDE 0.9% 100 ML IV SCH (15:21)
[2018-02-18] MEDS ORDERED: EPOETIN ALFA 10,000 UNIT/ML VIAL SQ PRN (16:15)
[2018-02-18] MEDS ORDERED: EPOETIN ALFA 10,000 UNIT/ML VIAL SQ SCH (16:15)
[2018-02-18] MEDS ORDERED: INSULIN GLARGINE 100 UNITS/ML 10 ML VIAL SQ SCH (21:00)
[2018-02-18] MEDS: INSULIN GLARGINE 100 UNITS/ML 10 ML VIAL SQ SCH (21:07)
[2018-02-19] VITALS (24 sets, daily range): BP systolic 104–188; BP diastolic 75–109
[2018-02-19] MEDS ORDERED: SODIUM CHLORIDE 0.9% 100 ML IV ONE (00:22)
[2018-02-19] MEDS: METRONIDAZOLE 500MG/100ML BAG 100 ML IV SCH ×4 (00:26→23:58)
[2018-02-19] MEDS: ZOSYN 3.375GM+NS 50ML 50 ML IV SCH ×3 (00:47→16:11)
[2018-02-19] MEDS: MAG HYDROX/AL HYDROX/SIMETH ES 30 ML SUSP UDCUP PO SCH (02:30)
[2018-02-19 04:03] LABS: HEMATOCRIT 27.6 % (36-48); MEAN CORPUSCULAR HEMOGLOBIN 31.1 pg (27.0-33.0); MEAN CORPUSCULAR HGB CONC 34.5 g/dL (32.0-36.0); NUCLEATED RED BLOOD CELLS 1.9 % (0.0-0.19); PLATELET COUNT (AUTO) 31 K/uL (130-400); RED BLOOD CELL COUNT(AUTO) 3.07 MIL/uL (4.00-5.50); RED CELL DISTRIBUTION WIDTH 14.7 % (11.0-15.5); WHITE BLOOD COUNT (AUTO) 19.6 K/uL (4.8-10.8)
[2018-02-19 04:20] LABS: CREATININE 5.4 mg/dL (0.5-1.5)
[2018-02-19] MEDS: INSULIN HUMULIN R 100 UNIT/ML 3ML SQ SCH ×4 (06:28→18:00)
[2018-02-19] MEDS: THIAMINE HCL 100 MG/ML 2ML VIAL IVP SCH (08:09)
[2018-02-19] MEDS: PANTOPRAZOLE 40 MG/VIAL IVP SCH (08:09)
[2018-02-19] MEDS: TRIAMCINOLONE ACETONIDE 0.1% CREAM 15GM TP SCH ×3 (08:10→21:00)
[2018-02-19] MEDS: ARTIFICAL TEARS SOL 15 ML OU SCH ×2 (08:10→21:35)
[2018-02-19] MEDS: LEVETIRACETAM 500 MG in SODIUM CHLORIDE 0.9% 100 ML IV SCH (12:00)
[2018-02-19] MEDS: SILVER SULFADIAZINE CREAM 400 GM TP SCH ×2 (12:57→21:35)
[2018-02-19] MEDS: INSULIN GLARGINE 100 UNITS/ML 10 ML VIAL SQ SCH (21:40)
[2018-02-20] VITALS (27 sets, daily range): BP systolic 99–189; BP diastolic 57–107
[2018-02-20] MEDS: ACETAMINOPHEN 325 MG TAB PO PRN (00:08)
[2018-02-20] MEDS: LEVETIRACETAM 500 MG in SODIUM CHLORIDE 0.9% 100 ML IV SCH ×2 (00:53→12:06)
[2018-02-20] MEDS: ZOSYN 3.375GM+NS 50ML 50 ML IV SCH ×3 (01:26→21:42)
[2018-02-20] MEDS: MAG HYDROX/AL HYDROX/SIMETH ES 30 ML SUSP UDCUP PO SCH (01:51)
[2018-02-20] MEDS ORDERED: SODIUM CHLORIDE 0.9% 500ML 500 ML IV ONE (03:20)
[2018-02-20 04:05] LABS: HEMATOCRIT 29.8 % (36-48); MEAN CORPUSCULAR HEMOGLOBIN 31.2 pg (27.0-33.0); MEAN CORPUSCULAR HGB CONC 35.1 g/dL (32.0-36.0); MEAN CORPUSCULAR VOLUME 88.8 fL (79-99); NUCLEATED RED BLOOD CELLS 1.2 % (0.0-0.19); PLATELET COUNT (AUTO) 24 K/uL (130-400); RED BLOOD CELL COUNT(AUTO) 3.36 MIL/uL (4.00-5.50); RED CELL DISTRIBUTION WIDTH 14.7 % (11.0-15.5); WHITE BLOOD COUNT (AUTO) 17.1 K/uL (4.8-10.8)
[2018-02-20 04:21] LABS: EOSINOPHILS % (MANUAL) 2 % (1-6); LYMPHOCYTES % (MANUAL) 20 % (22-44); MAN.DIFF COMMENT-IMPRESSION MANUAL DIFFERENTIAL; MONOCYTES % (MANUAL) 7 % (2-9); PLATELET MORPHOLOGY COMMENT MARKED DECREASED; SEGMENTED NEUTROPHILS % 71 % (40-70)
[2018-02-20 04:23] LABS: ALBUMIN 1.6 g/dL (3.5-5.0); BILIRUBIN,TOTAL 1.9 mg/dL (0.2-1.0); CREATININE 4.7 mg/dL (0.5-1.5); MAGNESIUM 2.3 mg/dL (1.80-2.40); PHOSPHORUS 5.1 mg/dL (2.5-4.9); POTASSIUM 4.3 mmol/L (3.5-5.1); TOTAL PROTEIN, SERUM 4.8 g/dL (6.0-8.3)
[2018-02-20] MEDS: INSULIN HUMULIN R 100 UNIT/ML 3ML SQ SCH ×3 (06:00→12:00)
[2018-02-20] MEDS: METRONIDAZOLE 500MG/100ML BAG 100 ML IV SCH ×2 (06:24→16:00)
[2018-02-20] MEDS: DEXTROSE 50%-WATER 50 ML DISP.SYRIN IV PRN ×5 (06:25→21:23)
[2018-02-20] MEDS: PANTOPRAZOLE 40 MG/VIAL IVP SCH (08:39)
[2018-02-20] MEDS: THIAMINE HCL 100 MG/ML 2ML VIAL IVP SCH (08:39)
[2018-02-20] MEDS: SILVER SULFADIAZINE CREAM 400 GM TP SCH ×2 (08:40→21:30)
[2018-02-20] MEDS: ARTIFICAL TEARS SOL 15 ML OU SCH ×3 (08:40→21:30)
[2018-02-20] MEDS: TRIAMCINOLONE ACETONIDE 0.1% CREAM 15GM TP SCH ×3 (08:40→21:00)
[2018-02-20] MEDS ORDERED: DEXTROSE 5%-WATER 1,000 ML IV ONE (11:00)
[2018-02-20] MEDS: DEXTROSE 5%-WATER 1,000 ML IV SCH ×2 (11:06→12:05)
[2018-02-20 13:32] LABS: ABG BASE EXCESS 5.4 mmol/L (-2.0-3.0); ABG HCO3 29.1 mmol/L (21.0-28.0); ABG OXYGEN SATURATION 97.5 % (95.0-99.0); ABG PCO2 39 mmHg (32-45)
[2018-02-20] MEDS ORDERED: DEXTROSE 10%-WATER 1,000 ML IV SCH (14:30)
[2018-02-20] MEDS: AZITHROMYCIN 500MG+NS 250ML 250 ML IV SCH (14:30)
[2018-02-20] MEDS ORDERED: VANCOMYCIN 1.5 GM in SODIUM CHLORIDE 0.9% 250 ML IV SCH (15:00)
[2018-02-20] MEDS ORDERED: COMPOUND IV REFRIGERATED 1 EACH IVSOLN MISC PRN (15:00)
[2018-02-20] MEDS ORDERED: VANCOMYCIN PROTOCOL PER PHARMACY IV SCH (15:00)
[2018-02-20] MEDS: METOCLOPRAMIDE 10 MG/2 ML VIAL IVP SCH ×2 (15:11→16:51)
[2018-02-20] MEDS: FENTANYL CITRATE PF 50 MCG/1 ML 2ML VIAL IVP PRN (17:15)
[2018-02-20] MEDS: DEXTROSE 10%-WATER 1,000 ML IV SCH (19:00)
[2018-02-20] MEDS: HYDROCORTISONE SOD SUCCINATE 100 MG/2 ML VIAL IV SCH (21:29)
[2018-02-21] VITALS (23 sets, daily range): BP systolic 121–163; BP diastolic 61–98
[2018-02-21] MEDS: METRONIDAZOLE 500MG/100ML BAG 100 ML IV SCH ×4 (00:36→23:47)
[2018-02-21] MEDS: MAG HYDROX/AL HYDROX/SIMETH ES 30 ML SUSP UDCUP PO SCH (01:07)
[2018-02-21] MEDS: METOCLOPRAMIDE 10 MG/2 ML VIAL IVP SCH ×3 (01:09→16:47)
[2018-02-21] MEDS: ZOSYN 3.375GM+NS 50ML 50 ML IV SCH ×3 (03:06→16:47)
[2018-02-21] MEDS: ARTIFICAL TEARS SOL 15 ML OU SCH ×4 (03:07→20:06)
[2018-02-21 04:28] LABS: BASOPHILS % (AUTO) 0.1 % (0.0-5.0); EOSINOPHILS % (AUTO) 0.2 % (0.0-8.0); HEMATOCRIT 29.9 % (36-48); LYMPHOCYTES % (AUTO) 4.1 % (21.0-51.0); MEAN CORPUSCULAR HEMOGLOBIN 31.4 pg (27.0-33.0); MEAN CORPUSCULAR HGB CONC 34.5 g/dL (32.0-36.0); MONOCYTES % (AUTO) 7.9 % (3.0-13.0); NEUTROPHILS % (AUTO) 87.7 % (40.0-77.0); NUCLEATED RED BLOOD CELLS 0.4 % (0.0-0.19); PLATELET COUNT (AUTO) 26 K/uL (130-400); RED BLOOD CELL COUNT(AUTO) 3.29 MIL/uL (4.00-5.50); WHITE BLOOD COUNT (AUTO) 13.1 K/uL (4.8-10.8)
[2018-02-21 04:48] LABS: ABG HCO3 26.6 mmol/L (21.0-28.0); ABG OXYGEN SATURATION 98.9 % (95.0-99.0); ABG PCO2 34 mmHg (32-45)
[2018-02-21] MEDS: HYDROCORTISONE SOD SUCCINATE 100 MG/2 ML VIAL IV SCH ×3 (04:51→20:05)
[2018-02-21 05:08] LABS: BILIRUBIN,TOTAL 9.4 mg/dL (0.2-1.0); CREATININE 6.5 mg/dL (0.5-1.5); MAGNESIUM 2.5 mg/dL (1.80-2.40); PHOSPHORUS 6.3 mg/dL (2.5-4.9); POTASSIUM 4.7 mmol/L (3.5-5.1); TROPONIN I 0.21 ng/mL (0.00-0.06)
[2018-02-21 05:09] LABS: ALBUMIN 1.3 g/dL (3.5-5.0); TOTAL PROTEIN, SERUM 4.4 g/dL (6.0-8.3)
[2018-02-21] MEDS: DEXTROSE 10%-WATER 1,000 ML IV SCH ×2 (05:23→20:05)
[2018-02-21] MEDS: PANTOPRAZOLE 40 MG/VIAL IVP SCH (08:32)
[2018-02-21] MEDS: THIAMINE HCL 100 MG/ML 2ML VIAL IVP SCH (08:32)
[2018-02-21] MEDS: SILVER SULFADIAZINE CREAM 400 GM TP SCH ×2 (08:33→20:07)
[2018-02-21] MEDS: TRIAMCINOLONE ACETONIDE 0.1% CREAM 15GM TP SCH ×2 (08:33→14:29)
[2018-02-21] MEDS: LEVETIRACETAM 500 MG in SODIUM CHLORIDE 0.9% 100 ML IV SCH (11:34)
[2018-02-21] MEDS: AZITHROMYCIN 500MG+NS 250ML 250 ML IV SCH (14:28)
[2018-02-21 15:24] LABS: INR 1.1 (0.85-1.15); PARTIAL THROMBOPLASTIN TIME 30.7 SEC (26.3-35.5); PROTHROMBIN TIME 11.5 SEC (9.6-11.6)
[2018-02-22] VITALS (25 sets, daily range): BP systolic 131–169; BP diastolic 68–99
[2018-02-22] MEDS: ZOSYN 3.375GM+NS 50ML 50 ML IV SCH ×3 (00:08→17:12)
[2018-02-22] MEDS: METOCLOPRAMIDE 10 MG/2 ML VIAL IVP SCH ×3 (01:10→17:12)
[2018-02-22] MEDS: ARTIFICAL TEARS SOL 15 ML OU SCH ×4 (02:14→20:47)
[2018-02-22] MEDS: HYDROCORTISONE SOD SUCCINATE 100 MG/2 ML VIAL IV SCH ×3 (03:29→20:45)
[2018-02-22 03:55] LABS: ABG BASE EXCESS 2.5 mmol/L (-2.0-3.0); ABG HCO3 25.7 mmol/L (21.0-28.0); ABG OXYGEN SATURATION 97.5 % (95.0-99.0); ABG PCO2 35 mmHg (32-45)
[2018-02-22 05:08] LABS: HEMATOCRIT 26.4 % (36-48); MEAN CORPUSCULAR HGB CONC 33.3 g/dL (32.0-36.0); PLATELET COUNT (AUTO) 67 K/uL (130-400); RED BLOOD CELL COUNT(AUTO) 2.93 MIL/uL (4.00-5.50); RED CELL DISTRIBUTION WIDTH 15.1 % (11.0-15.5); WHITE BLOOD COUNT (AUTO) 13.5 K/uL (4.8-10.8)
[2018-02-22 05:20] LABS: INR 1.09 (0.85-1.15); PARTIAL THROMBOPLASTIN TIME 29.6 SEC (26.3-35.5); PROTHROMBIN TIME 11.4 SEC (9.6-11.6)
[2018-02-22 05:24] LABS: BAND NEUTROPHILS % (MANUAL) 5 % (0-2); LYMPHOCYTES % (MANUAL) 8 % (22-44); MAN.DIFF COMMENT-IMPRESSION MANUAL DIFFERENTIAL; MONOCYTES % (MANUAL) 6 % (2-9); SEGMENTED NEUTROPHILS % 81 % (40-70)
[2018-02-22 05:31] LABS: ALBUMIN 1.2 g/dL (3.5-5.0); BILIRUBIN,TOTAL 2.8 mg/dL (0.2-1.0); CREATININE 7.6 mg/dL (0.5-1.5); MAGNESIUM 2.6 mg/dL (1.80-2.40); PHOSPHORUS 8.6 mg/dL (2.5-4.9); PLATELET MORPHOLOGY COMMENT MARKED DECREASED; TOTAL PROTEIN, SERUM 4.6 g/dL (6.0-8.3)
[2018-02-22] MEDS: DEXTROSE 10%-WATER 1,000 ML IV SCH (08:30)
[2018-02-22] MEDS: SILVER SULFADIAZINE CREAM 400 GM TP SCH ×2 (10:07→20:48)
[2018-02-22] MEDS: PANTOPRAZOLE 40 MG/VIAL IVP SCH (10:31)
[2018-02-22] MEDS: METRONIDAZOLE 500MG/100ML BAG 100 ML IV SCH ×2 (10:31→15:59)
[2018-02-22] MEDS: LEVETIRACETAM 500 MG in SODIUM CHLORIDE 0.9% 100 ML IV SCH ×2 (10:32→13:17)
[2018-02-22] MEDS: THIAMINE HCL 100 MG/ML 2ML VIAL IVP SCH (10:32)
[2018-02-22 12:31] LABS: ABG BASE EXCESS 3.2 mmol/L (-2.0-3.0); ABG HCO3 26.7 mmol/L (21.0-28.0); ABG OXYGEN SATURATION 98.8 % (95.0-99.0); ABG PCO2 37 mmHg (32-45)
[2018-02-22] MEDS ORDERED: DEXTROSE 10%-WATER 1,000 ML IV PRN (13:45)
[2018-02-22] MEDS: AZITHROMYCIN 500MG+NS 250ML 250 ML IV SCH (14:45)
[2018-02-22] MEDS: FENTANYL CITRATE PF 50 MCG/1 ML 2ML VIAL IVP PRN (15:59)
[2018-02-23] VITALS (26 sets, daily range): BP systolic 134–181; BP diastolic 77–107
[2018-02-23] MEDS: METRONIDAZOLE 500MG/100ML BAG 100 ML IV SCH ×3 (00:06→17:05)
[2018-02-23] MEDS: METOCLOPRAMIDE 10 MG/2 ML VIAL IVP SCH ×3 (00:24→17:05)
[2018-02-23] MEDS: ZOSYN 3.375GM+NS 50ML 50 ML IV SCH ×3 (01:18→17:06)
[2018-02-23] MEDS: HYDROCORTISONE SOD SUCCINATE 100 MG/2 ML VIAL IV SCH ×3 (03:51→21:05)
[2018-02-23 03:57] LABS: HEMATOCRIT 25.9 % (36-48); MEAN CORPUSCULAR HGB CONC 34.3 g/dL (32.0-36.0); MEAN CORPUSCULAR VOLUME 90.4 fL (79-99); NUCLEATED RED BLOOD CELLS 0.3 % (0.0-0.19); PLATELET COUNT (AUTO) 93 K/uL (130-400); RED BLOOD CELL COUNT(AUTO) 2.86 MIL/uL (4.00-5.50); RED CELL DISTRIBUTION WIDTH 15.3 % (11.0-15.5)
[2018-02-23] MEDS: ARTIFICAL TEARS SOL 15 ML OU SCH ×4 (03:57→21:24)
[2018-02-23 04:05] LABS: ALBUMIN 1.2 g/dL (3.5-5.0); BILIRUBIN,TOTAL 1.8 mg/dL (0.2-1.0); POTASSIUM 5.1 mmol/L (3.5-5.1); TOTAL PROTEIN, SERUM 4.7 g/dL (6.0-8.3)
[2018-02-23 04:28] LABS: BAND NEUTROPHILS % (MANUAL) 1 % (0-2); LYMPHOCYTES % (MANUAL) 4 % (22-44); MAN.DIFF COMMENT-IMPRESSION MANUAL DIFFERENTIAL; MONOCYTES % (MANUAL) 11 % (2-9); PLATELET MORPHOLOGY COMMENT DECREASED; SEGMENTED NEUTROPHILS % 84 % (40-70)
[2018-02-23] MEDS: PANTOPRAZOLE 40 MG/VIAL IVP SCH (08:19)
[2018-02-23] MEDS: THIAMINE HCL 100 MG/ML 2ML VIAL IVP SCH (08:19)
[2018-02-23] MEDS: SILVER SULFADIAZINE CREAM 400 GM TP SCH ×2 (08:20→21:24)
[2018-02-23] MEDS: FENTANYL CITRATE PF 50 MCG/1 ML 2ML VIAL IVP PRN ×2 (08:20→15:22)
[2018-02-23 08:43] LABS: ABG BASE EXCESS 0.1 mmol/L (-2.0-3.0); ABG HCO3 24.1 mmol/L (21.0-28.0); ABG OXYGEN SATURATION 98.5 % (95.0-99.0); ABG PCO2 37 mmHg (32-45)
[2018-02-23] MEDS ORDERED: RACEPINEPHRINE HCL 2.25% 0.5 ML NEB SOLN NEB PRN (09:00)
[2018-02-23] MEDS: LEVETIRACETAM 500 MG in SODIUM CHLORIDE 0.9% 100 ML IV SCH (12:12)
[2018-02-23] MEDS: AZITHROMYCIN 500MG+NS 250ML 250 ML IV SCH (14:57)
[2018-02-23] MEDS ORDERED: SODIUM CHLORIDE 0.9% 100 ML IV ONE (16:55)
[2018-02-23] MEDS: INSULIN HUMULIN R 100 UNIT/ML 3ML SQ SCH ×2 (17:07→21:07)
[2018-02-24] VITALS (28 sets, daily range): BP systolic 145–212; BP diastolic 69–102
[2018-02-24] MEDS: METRONIDAZOLE 500MG/100ML BAG 100 ML IV SCH ×3 (00:43→16:07)
[2018-02-24] MEDS: METOCLOPRAMIDE 10 MG/2 ML VIAL IVP SCH ×3 (00:45→17:21)
[2018-02-24] MEDS: INSULIN HUMULIN R 100 UNIT/ML 3ML SQ SCH ×6 (00:45→20:12)
[2018-02-24] MEDS: ZOSYN 3.375GM+NS 50ML 50 ML IV SCH ×3 (00:45→17:17)
[2018-02-24] MEDS: ARTIFICAL TEARS SOL 15 ML OU SCH ×4 (05:26→21:45)
[2018-02-24] MEDS: HYDROCORTISONE SOD SUCCINATE 100 MG/2 ML VIAL IV SCH ×3 (05:28→19:22)
[2018-02-24 07:50] LABS: HEMATOCRIT 29.6 % (36-48); MEAN CORPUSCULAR HEMOGLOBIN 30.6 pg (27.0-33.0); MEAN CORPUSCULAR HGB CONC 34.5 g/dL (32.0-36.0); MEAN CORPUSCULAR VOLUME 88.8 fL (79-99); NUCLEATED RED BLOOD CELLS 0.2 % (0.0-0.19); PLATELET COUNT (AUTO) 125 K/uL (130-400); RED BLOOD CELL COUNT(AUTO) 3.33 MIL/uL (4.00-5.50); RED CELL DISTRIBUTION WIDTH 15.5 % (11.0-15.5); WHITE BLOOD COUNT (AUTO) 19.8 K/uL (4.8-10.8)
[2018-02-24 08:11] LABS: ALBUMIN 1.6 g/dL (3.5-5.0); BILIRUBIN,TOTAL 1.7 mg/dL (0.2-1.0); CREATININE 4.3 mg/dL (0.5-1.5); POTASSIUM 3.7 mmol/L (3.5-5.1); TOTAL PROTEIN, SERUM 5.9 g/dL (6.0-8.3)
[2018-02-24] MEDS: PANTOPRAZOLE 40 MG/VIAL IVP SCH (10:52)
[2018-02-24] MEDS: THIAMINE HCL 100 MG/ML 2ML VIAL IVP SCH (10:53)
[2018-02-24] MEDS: LEVETIRACETAM 500 MG in SODIUM CHLORIDE 0.9% 100 ML IV SCH ×2 (10:53→11:38)
[2018-02-24] MEDS: SILVER SULFADIAZINE CREAM 400 GM TP SCH ×2 (10:54→21:45)
[2018-02-24] MEDS: AZITHROMYCIN 500MG+NS 250ML 250 ML IV SCH (13:04)
[2018-02-25] VITALS (11 sets, daily range): BP systolic 141–186; BP diastolic 75–90
[2018-02-25] MEDS: METRONIDAZOLE 500MG/100ML BAG 100 ML IV SCH ×3 (00:16→16:14)
[2018-02-25] MEDS: ZOSYN 3.375GM+NS 50ML 50 ML IV SCH ×3 (00:16→16:53)
[2018-02-25] MEDS: METOCLOPRAMIDE 10 MG/2 ML VIAL IVP SCH (01:16)
[2018-02-25 03:53] LABS: BASOPHILS % (AUTO) 0.1 % (0.0-5.0); HEMATOCRIT 27.9 % (36-48); LYMPHOCYTES % (AUTO) 5.3 % (21.0-51.0); MEAN CORPUSCULAR HEMOGLOBIN 30.2 pg (27.0-33.0); MEAN CORPUSCULAR HGB CONC 33.7 g/dL (32.0-36.0); MEAN CORPUSCULAR VOLUME 89.8 fL (79-99); MONOCYTES % (AUTO) 7.8 % (3.0-13.0); NEUTROPHILS % (AUTO) 86.8 % (40.0-77.0); NUCLEATED RED BLOOD CELLS 0.1 % (0.0-0.19); PLATELET COUNT (AUTO) 131 K/uL (130-400); RED BLOOD CELL COUNT(AUTO) 3.11 MIL/uL (4.00-5.50); RED CELL DISTRIBUTION WIDTH 15.3 % (11.0-15.5); WHITE BLOOD COUNT (AUTO) 19.8 K/uL (4.8-10.8)
[2018-02-25 03:59] LABS: INR 1.23 (0.85-1.15); PROTHROMBIN TIME 12.9 SEC (9.6-11.6)
[2018-02-25] MEDS: ARTIFICAL TEARS SOL 15 ML OU SCH (03:59)
[2018-02-25] MEDS: INSULIN HUMULIN R 100 UNIT/ML 3ML SQ SCH ×6 (04:00→21:26)
[2018-02-25 04:12] LABS: CREATININE 5.7 mg/dL (0.5-1.5); MAGNESIUM 2.4 mg/dL (1.80-2.40); POTASSIUM 4.4 mmol/L (3.5-5.1)
[2018-02-25] MEDS: LABETALOL HCL 5 MG/ML 20ML VIAL IV PRN ×2 (08:00→11:13)
[2018-02-25] MEDS: HEPARIN SODIUM 5000UNIT/ML 1ML VIAL SQ SCH ×2 (09:09→21:34)
[2018-02-25] MEDS: THIAMINE HCL 100 MG TABLET PO SCH (09:11)
[2018-02-25] MEDS: SEVELAMER HCL 800 MG TABLET PO SCH ×3 (09:11→16:54)
[2018-02-25] MEDS: PANTOPRAZOLE SODIUM 40 MG TABLET.DR PO SCH (09:11)
[2018-02-25] MEDS: LEVETIRACETAM 500 MG TABLET PO SCH (09:12)
[2018-02-25] MEDS: SILVER SULFADIAZINE CREAM 400 GM TP SCH ×2 (09:13→21:36)
[2018-02-25] MEDS: PREDNISONE 20 MG TABLET PO SCH (09:27)
[2018-02-25] MEDS: INSULIN GLARGINE 100 UNITS/ML 10 ML VIAL SQ SCH (09:36)
[2018-02-25] MEDS ORDERED: AMLODIPINE BESYLATE 5 MG TAB PO ONE (11:33)
[2018-02-25] MEDS ORDERED: AMLODIPINE BESYLATE 5 MG TAB PO SCH (11:45)
[2018-02-25] MEDS: ACETAMINOPHEN 325 MG TAB PO PRN (16:55)
[2018-02-25] MEDS: CALCIUM ACETATE 667 MG CAPSULE PO SCH (21:35)
[2018-02-26] VITALS (7 sets, daily range): BP systolic 143–169; BP diastolic 75–89
[2018-02-26] MEDS: METRONIDAZOLE 500MG/100ML BAG 100 ML IV SCH ×4 (00:39→23:20)
[2018-02-26] MEDS: ZOSYN 3.375GM+NS 50ML 50 ML IV SCH ×3 (00:47→16:08)
[2018-02-26 04:24] LABS: HEMATOCRIT 29.8 % (36-48); MEAN CORPUSCULAR HEMOGLOBIN 30.3 pg (27.0-33.0); MEAN CORPUSCULAR HGB CONC 33.7 g/dL (32.0-36.0); MEAN CORPUSCULAR VOLUME 89.9 fL (79-99); NUCLEATED RED BLOOD CELLS 0.1 % (0.0-0.19); PLATELET COUNT (AUTO) 179 K/uL (130-400); RED BLOOD CELL COUNT(AUTO) 3.32 MIL/uL (4.00-5.50); RED CELL DISTRIBUTION WIDTH 14.9 % (11.0-15.5); WHITE BLOOD COUNT (AUTO) 22.3 K/uL (4.8-10.8)
[2018-02-26 04:47] LABS: ALBUMIN 1.3 g/dL (3.5-5.0); BILIRUBIN,TOTAL 1.2 mg/dL (0.2-1.0); CREATININE 6.9 mg/dL (0.5-1.5); PHOSPHORUS 9.5 mg/dL (2.5-4.9); TOTAL PROTEIN, SERUM 4.8 g/dL (6.0-8.3)
[2018-02-26] MEDS: DEXTROSE 50%-WATER 50 ML DISP.SYRIN IV PRN (05:27)
[2018-02-26] MEDS: INSULIN GLARGINE 100 UNITS/ML 10 ML VIAL SQ SCH (07:30)
[2018-02-26] MEDS: INSULIN HUMULIN R 100 UNIT/ML 3ML SQ SCH ×4 (07:30→20:39)
[2018-02-26] MEDS ORDERED: MAG HYDROX/AL HYDROX/SIMETH ES 30 ML SUSP UDCUP PO PRN ×2 (09:15→09:30)
[2018-02-26] MEDS: HEPARIN SODIUM 5000UNIT/ML 1ML VIAL SQ SCH ×2 (09:49→21:22)
[2018-02-26] MEDS: SEVELAMER HCL 800 MG TABLET PO SCH ×3 (09:57→16:08)
[2018-02-26] MEDS: THIAMINE HCL 100 MG TABLET PO SCH (09:57)
[2018-02-26] MEDS: LEVETIRACETAM 500 MG TABLET PO SCH (09:58)
[2018-02-26] MEDS: PANTOPRAZOLE SODIUM 40 MG TABLET.DR PO SCH (09:58)
[2018-02-26] MEDS: CALCIUM ACETATE 667 MG CAPSULE PO SCH ×3 (09:58→21:32)
[2018-02-26] MEDS: AMLODIPINE BESYLATE 5 MG TAB PO SCH (09:58)
[2018-02-26] MEDS: SILVER SULFADIAZINE CREAM 400 GM TP SCH ×2 (09:59→21:33)
[2018-02-26] MEDS: PREDNISONE 20 MG TABLET PO SCH (10:01)
[2018-02-26] MEDS: ACETAMINOPHEN 325 MG TAB PO PRN (10:38)
[2018-02-26] MEDS: LABETALOL HCL 5 MG/ML 20ML VIAL IV PRN (23:30)
[2018-02-27] MEDS: ZOSYN 3.375GM+NS 50ML 50 ML IV SCH ×3 (00:38→16:44)
[2018-02-27 04:00] VITALS: BP 140/76
[2018-02-27] MEDS: INSULIN HUMULIN R 100 UNIT/ML 3ML SQ SCH ×4 (06:11→21:00)
[2018-02-27] MEDS: INSULIN GLARGINE 100 UNITS/ML 10 ML VIAL SQ SCH (06:50)
[2018-02-27 07:00] VITALS: BP 145/88
[2018-02-27 08:14] LABS: HEMATOCRIT 27.5 % (36-48); MEAN CORPUSCULAR HEMOGLOBIN 29.8 pg (27.0-33.0); MEAN CORPUSCULAR HGB CONC 32.9 g/dL (32.0-36.0); MEAN CORPUSCULAR VOLUME 90.5 fL (79-99); NUCLEATED RED BLOOD CELLS 0.1 % (0.0-0.19); PLATELET COUNT (AUTO) 146 K/uL (130-400); RED BLOOD CELL COUNT(AUTO) 3.04 MIL/uL (4.00-5.50); RED CELL DISTRIBUTION WIDTH 15.2 % (11.0-15.5); WHITE BLOOD COUNT (AUTO) 20.4 K/uL (4.8-10.8)
[2018-02-27 08:21] LABS: CREATININE 6.1 mg/dL (0.5-1.5); POTASSIUM 4.2 mmol/L (3.5-5.1)
[2018-02-27] MEDS: METRONIDAZOLE 500MG/100ML BAG 100 ML IV SCH ×3 (08:33→23:38)
[2018-02-27] MEDS: SEVELAMER HCL 800 MG TABLET PO SCH ×3 (08:36→16:44)
[2018-02-27] MEDS: THIAMINE HCL 100 MG TABLET PO SCH (08:36)
[2018-02-27] MEDS: PREDNISONE 20 MG TABLET PO SCH (08:37)
[2018-02-27] MEDS: PANTOPRAZOLE SODIUM 40 MG TABLET.DR PO SCH (08:37)
[2018-02-27] MEDS: AMLODIPINE BESYLATE 5 MG TAB PO SCH (08:37)
[2018-02-27] MEDS: LEVETIRACETAM 500 MG TABLET PO SCH (08:37)
[2018-02-27] MEDS: CALCIUM ACETATE 667 MG CAPSULE PO SCH ×3 (08:37→22:04)
[2018-02-27] MEDS: HEPARIN SODIUM 5000UNIT/ML 1ML VIAL SQ SCH ×2 (08:39→22:03)
[2018-02-27] MEDS: SILVER SULFADIAZINE CREAM 400 GM TP SCH ×2 (08:40→22:05)
[2018-02-27 11:00] VITALS: BP 145/86
[2018-02-27 16:00] VITALS: BP 172/84
[2018-02-27 19:00] VITALS: BP 154/91
[2018-02-28] VITALS (7 sets, daily range): BP systolic 135–153; BP diastolic 74–87
[2018-02-28] MEDS: ZOSYN 3.375GM+NS 50ML 50 ML IV SCH ×3 (01:12→16:17)
[2018-02-28 05:36] LABS: HEMATOCRIT 25.8 % (36-48); MEAN CORPUSCULAR HEMOGLOBIN 30.7 pg (27.0-33.0); MEAN CORPUSCULAR HGB CONC 33.9 g/dL (32.0-36.0); MEAN CORPUSCULAR VOLUME 90.4 fL (79-99); PLATELET COUNT (AUTO) 201 K/uL (130-400); RED BLOOD CELL COUNT(AUTO) 2.86 MIL/uL (4.00-5.50); RED CELL DISTRIBUTION WIDTH 15.5 % (11.0-15.5); WHITE BLOOD COUNT (AUTO) 19.8 K/uL (4.8-10.8)
[2018-02-28 05:54] LABS: INR 1.11 (0.85-1.15); PARTIAL THROMBOPLASTIN TIME 29.9 SEC (26.3-35.5); PROTHROMBIN TIME 11.6 SEC (9.6-11.6)
[2018-02-28 05:55] LABS: ALBUMIN 1.2 g/dL (3.5-5.0); BILIRUBIN,DIRECT 0.5 mg/dL (0.0-0.3); BILIRUBIN,TOTAL 0.9 mg/dL (0.2-1.0); POTASSIUM 4.3 mmol/L (3.5-5.1); TOTAL PROTEIN, SERUM 4.8 g/dL (6.0-8.3)
[2018-02-28 06:01] LABS: BAND NEUTROPHILS % (MANUAL) 4 % (0-2); LYMPHOCYTES % (MANUAL) 12 % (22-44); MAN.DIFF COMMENT-IMPRESSION MANUAL DIFFERENTIAL; MONOCYTES % (MANUAL) 3 % (2-9); REACTIVE LYMPHOCYTES 1 % (0-0); SEGMENTED NEUTROPHILS % 80 % (40-70)
[2018-02-28 06:02] LABS: PLATELET MORPHOLOGY COMMENT ADEQUATE
[2018-02-28] MEDS: INSULIN GLARGINE 100 UNITS/ML 10 ML VIAL SQ SCH (06:03)
[2018-02-28] MEDS: INSULIN HUMULIN R 100 UNIT/ML 3ML SQ SCH ×4 (06:03→21:09)
[2018-02-28] MEDS: THIAMINE HCL 100 MG TABLET PO SCH (08:12)
[2018-02-28] MEDS: SEVELAMER HCL 800 MG TABLET PO SCH ×3 (08:12→16:17)
[2018-02-28] MEDS: METRONIDAZOLE 500MG/100ML BAG 100 ML IV SCH ×3 (08:12→23:52)
[2018-02-28] MEDS: HEPARIN SODIUM 5000UNIT/ML 1ML VIAL SQ SCH ×2 (08:17→21:05)
[2018-02-28] MEDS: LEVETIRACETAM 500 MG TABLET PO SCH (08:18)
[2018-02-28] MEDS: CALCIUM ACETATE 667 MG CAPSULE PO SCH ×3 (08:18→20:57)
[2018-02-28] MEDS: PREDNISONE 20 MG TABLET PO SCH (08:18)
[2018-02-28] MEDS: AMLODIPINE BESYLATE 5 MG TAB PO SCH (08:19)
[2018-02-28] MEDS: FAMOTIDINE 20MG TAB 20 MG TAB PO SCH (08:20)
[2018-02-28] MEDS: MAG HYDROX/AL HYDROX/SIMETH ES 30 ML SUSP UDCUP PO PRN (08:36)
[2018-02-28] MEDS: SILVER SULFADIAZINE CREAM 400 GM TP SCH ×2 (09:32→21:00)
[2018-02-28] MEDS: ACETAMINOPHEN-CODEINE 300/30MG TAB PO PRN (12:06)
[2018-02-28] MEDS ORDERED: MORPHINE SULFATE 4 MG/1ML SYG ONE (16:36)
[2018-02-28] MEDS ORDERED: MORPHINE SULFATE 4 MG/1ML SYG IV ONE (16:45)
[2018-02-28] MEDS: HYDROCODONE/ACETAMINOPHEN 5/325 MG TAB PO PRN (20:57)
[2018-03-01] VITALS (9 sets, daily range): BP systolic 140–167; BP diastolic 78–91
[2018-03-01 05:15] LABS: HEMATOCRIT 26.6 % (36-48); MEAN CORPUSCULAR HGB CONC 33.4 g/dL (32.0-36.0); MEAN CORPUSCULAR VOLUME 89.8 fL (79-99); PLATELET COUNT (AUTO) 255 K/uL (130-400); RED BLOOD CELL COUNT(AUTO) 2.97 MIL/uL (4.00-5.50); WHITE BLOOD COUNT (AUTO) 22.1 K/uL (4.8-10.8)
[2018-03-01 05:26] LABS: INR 1.1 (0.85-1.15); PROTHROMBIN TIME 11.5 SEC (9.6-11.6)
[2018-03-01 05:36] LABS: ALBUMIN 1.3 g/dL (3.5-5.0); BILIRUBIN,TOTAL 0.9 mg/dL (0.2-1.0); POTASSIUM 4.8 mmol/L (3.5-5.1); TOTAL PROTEIN, SERUM 4.9 g/dL (6.0-8.3)
[2018-03-01] MEDS: INSULIN HUMULIN R 100 UNIT/ML 3ML SQ SCH ×3 (07:30→16:30)
[2018-03-01] MEDS: INSULIN GLARGINE 100 UNITS/ML 10 ML VIAL SQ SCH (07:30)
[2018-03-01] MEDS: HEPARIN SODIUM 5000UNIT/ML 1ML VIAL SQ SCH ×2 (08:00→21:06)
[2018-03-01] MEDS: FAMOTIDINE 20MG TAB 20 MG TAB PO SCH (09:43)
[2018-03-01] MEDS: LEVETIRACETAM 500 MG TABLET PO SCH (09:43)
[2018-03-01] MEDS: THIAMINE HCL 100 MG TABLET PO SCH (09:43)
[2018-03-01] MEDS: PREDNISONE 20 MG TABLET PO SCH (09:43)
[2018-03-01] MEDS: CALCIUM ACETATE 667 MG CAPSULE PO SCH ×3 (09:43→21:05)
[2018-03-01] MEDS: AMLODIPINE BESYLATE 5 MG TAB PO SCH (09:44)
[2018-03-01] MEDS: ACETAMINOPHEN-CODEINE 300/30MG TAB PO PRN (10:14)
[2018-03-01] MEDS: MAG HYDROX/AL HYDROX/SIMETH ES 30 ML SUSP UDCUP PO PRN (10:15)
[2018-03-01] MEDS: SEVELAMER HCL 800 MG TABLET PO SCH ×3 (12:00→17:00)
[2018-03-01] MEDS ORDERED: LIDOCAINE HCL 1% MDV 50ML VIAL ONE (14:52)
[2018-03-01] MEDS: SILVER SULFADIAZINE CREAM 400 GM TP SCH (15:19)
[2018-03-01] MEDS: HEPARIN SODIUM 5000UNIT/ML 1ML VIAL IJ PRN (19:50)
[2018-03-01] MEDS: HYDROCODONE/ACETAMINOPHEN 5/325 MG TAB PO PRN (21:05)
[2018-03-02] MEDS: MAG HYDROX/AL HYDROX/SIMETH ES 30 ML SUSP UDCUP PO PRN (02:43)
[2018-03-02 04:05] VITALS: BP 148/75
[2018-03-02 05:04] LABS: MEAN CORPUSCULAR HEMOGLOBIN 30.2 pg (27.0-33.0); MEAN CORPUSCULAR HGB CONC 33.5 g/dL (32.0-36.0); MEAN CORPUSCULAR VOLUME 90.2 fL (79-99); NUCLEATED RED BLOOD CELLS 0.1 % (0.0-0.19); PLATELET COUNT (AUTO) 307 K/uL (130-400); RED BLOOD CELL COUNT(AUTO) 2.99 MIL/uL (4.00-5.50); RED CELL DISTRIBUTION WIDTH 15.3 % (11.0-15.5); WHITE BLOOD COUNT (AUTO) 20.2 K/uL (4.8-10.8)
[2018-03-02 05:09] LABS: CREATININE 5.6 mg/dL (0.5-1.5)
[2018-03-02 05:30] LABS: BAND NEUTROPHILS % (MANUAL) 8 % (0-2); LYMPHOCYTES % (MANUAL) 4 % (22-44); MAN.DIFF COMMENT-IMPRESSION MANUAL DIFFERENTIAL; MONOCYTES % (MANUAL) 3 % (2-9); PLATELET MORPHOLOGY COMMENT ADEQUATE; SEGMENTED NEUTROPHILS % 85 % (40-70)
[2018-03-02] MEDS: INSULIN HUMULIN R 100 UNIT/ML 3ML SQ SCH ×4 (06:23→20:45)
[2018-03-02] MEDS ORDERED: INSULIN GLARGINE 100 UNITS/ML 10 ML VIAL SQ SCH (07:30)
[2018-03-02 07:58] VITALS: BP 154/70
[2018-03-02] MEDS: SILVER SULFADIAZINE CREAM 400 GM TP SCH ×2 (08:15→20:58)
[2018-03-02] MEDS: LEVETIRACETAM 500 MG TABLET PO SCH (08:22)
[2018-03-02] MEDS: SEVELAMER HCL 800 MG TABLET PO SCH ×3 (08:23→17:10)
[2018-03-02] MEDS: ACETAMINOPHEN-CODEINE 300/30MG TAB PO PRN ×2 (08:23→13:34)
[2018-03-02] MEDS: FAMOTIDINE 20MG TAB 20 MG TAB PO SCH (08:23)
[2018-03-02] MEDS: THIAMINE HCL 100 MG TABLET PO SCH (08:23)
[2018-03-02] MEDS: PREDNISONE 10 MG TABLET PO SCH (08:23)
[2018-03-02] MEDS: CALCIUM ACETATE 667 MG CAPSULE PO SCH ×3 (08:23→20:58)
[2018-03-02] MEDS: AMLODIPINE BESYLATE 5 MG TAB PO SCH (08:23)
[2018-03-02] MEDS: HEPARIN SODIUM 5000UNIT/ML 1ML VIAL SQ SCH ×2 (08:33→20:33)
[2018-03-02 11:13] VITALS: BP 162/76
[2018-03-02 16:00] VITALS: BP 138/72
[2018-03-02 19:00] VITALS: BP 138/76
[2018-03-03] VITALS: BP 131/75
[2018-03-03 04:00] VITALS: BP 144/73
[2018-03-03 05:24] LABS: HEMATOCRIT 25.6 % (36-48); MEAN CORPUSCULAR HEMOGLOBIN 29.8 pg (27.0-33.0); MEAN CORPUSCULAR HGB CONC 32.9 g/dL (32.0-36.0); MEAN CORPUSCULAR VOLUME 90.7 fL (79-99); NUCLEATED RED BLOOD CELLS 0.1 % (0.0-0.19); PLATELET COUNT (AUTO) 266 K/uL (130-400); RED BLOOD CELL COUNT(AUTO) 2.82 MIL/uL (4.00-5.50); RED CELL DISTRIBUTION WIDTH 15.2 % (11.0-15.5); WHITE BLOOD COUNT (AUTO) 19.3 K/uL (4.8-10.8)
[2018-03-03 05:33] LABS: POTASSIUM 4.2 mmol/L (3.5-5.1)
[2018-03-03] MEDS: DEXTROSE 50%-WATER 50 ML DISP.SYRIN IV PRN (06:03)
[2018-03-03] MEDS: INSULIN HUMULIN R 100 UNIT/ML 3ML SQ SCH ×4 (06:18→22:21)
[2018-03-03 07:00] VITALS: BP 159/88
[2018-03-03] MEDS: SEVELAMER HCL 800 MG TABLET PO SCH ×3 (08:00→18:42)
[2018-03-03] MEDS: HEPARIN SODIUM 5000UNIT/ML 1ML VIAL SQ SCH ×2 (08:00→12:50)
[2018-03-03] MEDS: HEPARIN SODIUM 5000UNIT/ML 1ML VIAL IJ PRN (10:59)
[2018-03-03 11:00] VITALS: BP 169/84
[2018-03-03] MEDS ORDERED: VANCOMYCIN PROTOCOL PER PHARMACY IV SCH (12:00)
[2018-03-03] MEDS ORDERED: COMPOUND IV REFRIGERATED 1 EACH IVSOLN MISC PRN (12:00)
[2018-03-03] MEDS ORDERED: VANCOMYCIN 1.5 GM in SODIUM CHLORIDE 0.9% 250 ML IV SCH (12:00)
[2018-03-03] MEDS: AMLODIPINE BESYLATE 5 MG TAB PO SCH (12:22)
[2018-03-03] MEDS: FAMOTIDINE 20MG TAB 20 MG TAB PO SCH (12:22)
[2018-03-03] MEDS: PREDNISONE 10 MG TABLET PO SCH (12:22)
[2018-03-03] MEDS: LEVETIRACETAM 500 MG TABLET PO SCH (12:22)
[2018-03-03] MEDS: THIAMINE HCL 100 MG TABLET PO SCH (12:22)
[2018-03-03] MEDS: CALCIUM ACETATE 667 MG CAPSULE PO SCH ×3 (12:23→22:24)
[2018-03-03] MEDS: ZOSYN 3.375GM+NS 50ML 50 ML IV SCH (12:25)
[2018-03-03] MEDS: HYDROCODONE/ACETAMINOPHEN 5/325 MG TAB PO PRN ×2 (12:37→18:56)
[2018-03-03] MEDS: SILVER SULFADIAZINE CREAM 400 GM TP SCH ×2 (12:44→22:24)
[2018-03-03 16:00] VITALS: BP 125/70
[2018-03-03 19:00] VITALS: BP 154/75
[2018-03-04] VITALS: BP 141/76
[2018-03-04] MEDS: ZOSYN 3.375GM+NS 50ML 50 ML IV SCH ×2 (00:37→12:51)
[2018-03-04 03:59] VITALS: BP 144/75
[2018-03-04 05:15] LABS: HEMATOCRIT 25.9 % (36-48); MEAN CORPUSCULAR HEMOGLOBIN 30.5 pg (27.0-33.0); MEAN CORPUSCULAR HGB CONC 33.7 g/dL (32.0-36.0); MEAN CORPUSCULAR VOLUME 90.6 fL (79-99); PLATELET COUNT (AUTO) 325 K/uL (130-400); RED BLOOD CELL COUNT(AUTO) 2.85 MIL/uL (4.00-5.50); RED CELL DISTRIBUTION WIDTH 15.2 % (11.0-15.5); WHITE BLOOD COUNT (AUTO) 20.3 K/uL (4.8-10.8)
[2018-03-04 05:26] LABS: ALBUMIN 1.4 g/dL (3.5-5.0); BILIRUBIN,TOTAL 0.6 mg/dL (0.2-1.0); CREATININE 5.4 mg/dL (0.5-1.5); PHOSPHORUS 5.5 mg/dL (2.5-4.9); TOTAL PROTEIN, SERUM 5.2 g/dL (6.0-8.3)
[2018-03-04] MEDS: INSULIN HUMULIN R 100 UNIT/ML 3ML SQ SCH ×4 (05:56→21:00)
[2018-03-04 08:00] VITALS: BP 155/77
[2018-03-04] MEDS: THIAMINE HCL 100 MG TABLET PO SCH (08:38)
[2018-03-04] MEDS: AMLODIPINE BESYLATE 5 MG TAB PO SCH (08:39)
[2018-03-04] MEDS: CALCIUM ACETATE 667 MG CAPSULE PO SCH ×3 (08:39→20:55)
[2018-03-04] MEDS: PREDNISONE 10 MG TABLET PO SCH (08:40)
[2018-03-04] MEDS: FAMOTIDINE 20MG TAB 20 MG TAB PO SCH (08:40)
[2018-03-04] MEDS: LEVETIRACETAM 500 MG TABLET PO SCH (08:40)
[2018-03-04] MEDS: SEVELAMER HCL 800 MG TABLET PO SCH ×3 (08:41→17:56)
[2018-03-04] MEDS: HEPARIN SODIUM 5000UNIT/ML 1ML VIAL SQ SCH ×2 (08:52→20:53)
[2018-03-04] MEDS: SILVER SULFADIAZINE CREAM 400 GM TP SCH ×2 (08:52→20:59)
[2018-03-04] MEDS: ALTEPLASE 2 MG/2 ML IVCATH SCH (10:24)
[2018-03-04] MEDS ORDERED: DIATR MEGLU/DIATRIZOATE SODIUM 30 ML BOTTLE ONE (10:45)
[2018-03-04 12:00] VITALS: BP 149/78
[2018-03-04] MEDS: HYDROCODONE/ACETAMINOPHEN 5/325 MG TAB PO PRN (12:51)
[2018-03-04] MEDS ORDERED: MORPHINE SULFATE 4 MG/1ML SYG ONE ×2 (13:19→15:09)
[2018-03-04] MEDS ORDERED: MORPHINE SULFATE 4 MG/1ML SYG IV ONE (15:45)
[2018-03-04 19:10] VITALS: BP 149/76
[2018-03-04] MEDS: ACETAMINOPHEN-CODEINE 300/30MG TAB PO PRN (20:50)
[2018-03-05] MEDS: ZOSYN 3.375GM+NS 50ML 50 ML IV SCH ×2 (00:23→11:16)
[2018-03-05 04:13] VITALS: BP 130/72
[2018-03-05] MEDS: ACETAMINOPHEN-CODEINE 300/30MG TAB PO PRN (04:44)
[2018-03-05 05:01] LABS: HEMATOCRIT 25.4 % (36-48); MEAN CORPUSCULAR HEMOGLOBIN 31.1 pg (27.0-33.0); MEAN CORPUSCULAR HGB CONC 34.7 g/dL (32.0-36.0); MEAN CORPUSCULAR VOLUME 89.5 fL (79-99); PLATELET COUNT (AUTO) 332 K/uL (130-400); RED BLOOD CELL COUNT(AUTO) 2.83 MIL/uL (4.00-5.50); RED CELL DISTRIBUTION WIDTH 15.5 % (11.0-15.5); WHITE BLOOD COUNT (AUTO) 19.5 K/uL (4.8-10.8)
[2018-03-05 05:10] LABS: CREATININE 6.3 mg/dL (0.5-1.5); PHOSPHORUS 6.6 mg/dL (2.5-4.9); POTASSIUM 3.7 mmol/L (3.5-5.1)
[2018-03-05 05:36] LABS: LYMPHOCYTES % (MANUAL) 6 % (22-44); MONOCYTES % (MANUAL) 4 % (2-9); SEGMENTED NEUTROPHILS % 90 % (40-70)
[2018-03-05 05:37] LABS: MAN.DIFF COMMENT-IMPRESSION MANUAL DIFFERENTIAL
[2018-03-05 05:38] LABS: PLATELET MORPHOLOGY COMMENT ADEQUATE
[2018-03-05] MEDS: INSULIN HUMULIN R 100 UNIT/ML 3ML SQ SCH ×3 (06:10→17:10)
[2018-03-05 07:45] VITALS: BP 152/87
[2018-03-05] MEDS: HEPARIN SODIUM 5000UNIT/ML 1ML VIAL SQ SCH (07:58)
[2018-03-05] MEDS: LEVETIRACETAM 500 MG TABLET PO SCH (07:59)
[2018-03-05] MEDS: AMLODIPINE BESYLATE 5 MG TAB PO SCH (07:59)
[2018-03-05] MEDS: SEVELAMER HCL 800 MG TABLET PO SCH ×2 (07:59→11:16)
[2018-03-05] MEDS: PREDNISONE 10 MG TABLET PO SCH (07:59)
[2018-03-05] MEDS: FAMOTIDINE 20MG TAB 20 MG TAB PO SCH (07:59)
[2018-03-05] MEDS: THIAMINE HCL 100 MG TABLET PO SCH (07:59)
[2018-03-05] MEDS: SILVER SULFADIAZINE CREAM 400 GM TP SCH (08:00)
[2018-03-05] MEDS: CALCIUM ACETATE 667 MG CAPSULE PO SCH ×2 (08:04→15:08)
[2018-03-05] MEDS ORDERED: MAG HYDROX/AL HYDROX/SIMETH 30 ML, LIDOCAINE HCL 2% VISCOUS 30 ML, DIPHENHYDRAMINE HCL ... PO PRN ×3 (08:15)
[2018-03-05] MEDS ORDERED: PHARMACY COMMUNICATION MISC SCH (08:15)
[2018-03-05] MEDS: HYDROCODONE/ACETAMINOPHEN 5/325 MG TAB PO PRN ×2 (08:42→15:46)
[2018-03-05] MEDS: ALTEPLASE 2 MG/2 ML IVCATH SCH (09:15)
[2018-03-05] MEDS ORDERED: POTASSIUM CHLORIDE 20 MEQ ERTAB PO SCH (11:00)
[2018-03-05 12:09] VITALS: BP 155/87
[2018-03-05 17:13] VITALS: BP 125/77
[2018-03-07] MEDS ORDERED: PREDNISONE 5 MG TABLET PO SCH (09:00)
== END 2018-03-05 18:20 | DRG 540 ==
LOC: EDH 23:45 → OBSVTOIN 23:46 → LDH 23:46 → 2CH 02-14 16:26 → 4AH 02-25 12:20 → 3AH 02-25 12:29
PROVIDERS: ADMIT Obstetrics & Gynecology; ATTEND Obstetrics & Gynecology
PROC: 0UT60ZZ Resection of Left Fallopian Tube, Open Approach (ICD-10-PCS; 2018-02-14)
PROC: 5A1955Z Respiratory Ventilation, Greater than 96 Consecutive Hours (ICD-10-PCS; 2018-02-14)
PROC: 0BH17EZ Insertion of Endotracheal Airway into Trachea, Via Natural or Artificial Opening (ICD-10-PCS; 2018-02-14)
PROC: 0UT90ZZ Resection of Uterus, Open Approach (ICD-10-PCS; principal; 2018-02-14 11:19)
PROC: 10D00Z0 Extraction of Products of Conception, High, Open Approach (ICD-10-PCS; 2018-02-14 20:15)
PROC: 0UT10ZZ Resection of Left Ovary, Open Approach (ICD-10-PCS; 2018-02-14 20:15)
PROC: 2W53X5Z Removal of Packing Material on Abdominal Wall (ICD-10-PCS; 2018-02-16)
PROC: 30233L1 Transfusion of Nonautologous Fresh Plasma into Peripheral Vein, Percutaneous Approach (ICD-10-PCS; 2018-02-16)
PROC: 30233N1 Transfusion of Nonautologous Red Blood Cells into Peripheral Vein, Percutaneous Approach (ICD-10-PCS; 2018-02-16)
PROC: 30233R1 Transfusion of Nonautologous Platelets into Peripheral Vein, Percutaneous Approach (ICD-10-PCS; 2018-02-16)
PROC: 30233K1 Transfusion of Nonautologous Frozen Plasma into Peripheral Vein, Percutaneous Approach (ICD-10-PCS; 2018-02-16)
PROC: 5A1D70Z Performance of Urinary Filtration, Intermittent, Less than 6 Hours Per Day (ICD-10-PCS; 2018-02-17)
PROC: 5A1D70Z Performance of Urinary Filtration, Intermittent, Less than 6 Hours Per Day (ICD-10-PCS; 2018-02-18)
PROC: 5A1D70Z Performance of Urinary Filtration, Intermittent, Less than 6 Hours Per Day (ICD-10-PCS; 2018-02-19)
PROC: 02H633Z Insertion of Infusion Device into Right Atrium, Percutaneous Approach (ICD-10-PCS; 2018-02-19)
PROC: 5A1D70Z Performance of Urinary Filtration, Intermittent, Less than 6 Hours Per Day (ICD-10-PCS; 2018-02-22)
PROC: 05HM33Z Insertion of Infusion Device into Right Internal Jugular Vein, Percutaneous Approach (ICD-10-PCS; 2018-02-23)
PROC: 3E0234Z Introduction of Serum, Toxoid and Vaccine into Muscle, Percutaneous Approach (ICD-10-PCS; 2018-02-23)
PROC: 5A1D70Z Performance of Urinary Filtration, Intermittent, Less than 6 Hours Per Day (ICD-10-PCS; 2018-02-24)
PROC: 5A1D70Z Performance of Urinary Filtration, Intermittent, Less than 6 Hours Per Day (ICD-10-PCS; 2018-02-26)
PROC: 5A1D70Z Performance of Urinary Filtration, Intermittent, Less than 6 Hours Per Day (ICD-10-PCS; 2018-03-01)
PROC: 5A1D70Z Performance of Urinary Filtration, Intermittent, Less than 6 Hours Per Day (ICD-10-PCS; 2018-03-03)
DX: O45.8X9 Other premature separation of placenta, unspecified trimester (principal); I46.9 Cardiac arrest, cause unspecified; D65 Disseminated intravascular coagulation [defibrination syndrome]; I26.99 Other pulmonary embolism without acute cor pulmonale; A41.9 Sepsis, unspecified organism; E43 Unspecified severe protein-calorie malnutrition; I60.9 Nontraumatic subarachnoid hemorrhage, unspecified; G93.1 Anoxic brain damage, not elsewhere classified; J95.821 Acute postprocedural respiratory failure; K66.1 Hemoperitoneum; K56.0 Paralytic ileus; O26.62 Liver and biliary tract disorders in childbirth; R65.21 Severe sepsis with septic shock; E87.1 Hypo-osmolality and hyponatremia; E87.2 Acidosis; N17.9 Acute kidney failure, unspecified; O99.42 Diseases of the circulatory system complicating childbirth; O32.1XX0 Maternal care for breech presentation, not applicable or unspecified; O32.2XX0 Maternal care for transverse and oblique lie, not applicable or unspecified; Z37.0 Single live birth; O99.284 Endocrine, nutritional and metabolic diseases complicating childbirth; I95.81 Postprocedural hypotension; O16.4 Unspecified maternal hypertension, complicating childbirth; O24.429 Gestational diabetes mellitus in childbirth, unspecified control; O25.2 Malnutrition in childbirth; O99.02 Anemia complicating childbirth; O99.354 Diseases of the nervous system complicating childbirth; O9A.22 Injury, poisoning and certain other consequences of external causes complicating childbirth; O75.3 Other infection during labor; Z68.34 Body mass index [BMI] 34.0-34.9, adult; D64.9 Anemia, unspecified; E16.2 Hypoglycemia, unspecified; E86.1 Hypovolemia; E87.0 Hyperosmolality and hypernatremia; E87.5 Hyperkalemia; E87.70 Fluid overload, unspecified; O75.89 Other specified complications of labor and delivery; G40.909 Epilepsy, unspecified, not intractable, without status epilepticus; H57.04 Mydriasis; I47.1 Supraventricular tachycardia; I31.3 Pericardial effusion (noninflammatory); I82.622 Acute embolism and thrombosis of deep veins of left upper extremity; J93.82 Other air leak; O62.4 Hypertonic, incoordinate, and prolonged uterine contractions; K12.30 Oral mucositis (ulcerative), unspecified; K62.5 Hemorrhage of anus and rectum; O45.93 Premature separation of placenta, unspecified, third trimester; K72.00 Acute and subacute hepatic failure without coma; K74.60 Unspecified cirrhosis of liver; N17.0 Acute kidney failure with tubular necrosis; T81.4XXA Infection following a procedure, initial encounter; Z74.01 Bed confinement status; Z90.5 Acquired absence of kidney; Z99.2 Dependence on renal dialysis; Z3A.35 35 weeks gestation of pregnancy; Z23 Encounter for immunization
CPT/HCPCS: 31500; 36415; 36430; 36556; 36600; 59510; 70450; 71045; 74018; 74176; 76700; 76770; 76805; 76819; 77001; 80048; 80053; 80076; 80305; 81001; 81241; 82009; 82140; 82247; 82248; 82330; 82435; 82533; 82550; 82553; 82803; 82947; 82948; 83090; 83605; 83615; 83735; 83874; 83935; 84100; 84132; 84295; 84300; 84484; 84550; 85014; 85018; 85025; 85027; 85049; 85210; 85300; 85378; 85384; 85610; 85730; 85732; 86038; 86078; 86147; 86592; 86701; 86850; 86900; 86901; 86922; 86927; 87040; 87070; 87076; 87324; 87340; 87390; 87520; 87804; 88307; 90935; 92507; 92610; 92950; 93306; 93970; 93971; 94002; 94003; 94640; 97039; A4218; A4314; A4344; A4606; C1752; C1894; C9113; G0008; J0171; J0290; J0330; J0456; J0610; J0690; J0702; J0885; J1100; J1644; J1720; J1815; J1940; J1953; J2001; J2060; J2175; J2250; J2270; J2310; J2370; J2405; J2543; J2550; J2704; J2710; J2765; J2930; J2997; J3010; J3105; J3370; J3411; J3475; J3480; J3490; J7030; J7040; J7060; J7070; J7120; J7512; P9012; P9016; P9017; P9034; P9045; Q2038; Q9963

== ENCOUNTER 2018-04-22 18:46 | Emergency (ER) | payer MEDICAID ==
[~2018-04-22 18:46] MED LIST changes: +AMIL5TAB8 PO; -GLYB5TAB8 PO; +MAGOX PO; +METO25 PO; +NYST5ORA7 PO; +PANT40TA PO; +PHOSLOC PO; +POLY17PO4 PO; -ROCURONIUM BROMIDE 10MG/1ML 5ML VL IV ONE; -SODIUM BICARB 8.4% 50ML SYRINGE IVP ONE; -SUCCINYLCHOLINE CHLORIDE 20 MG/ML 10 ML VIAL IVP ONE; +SUCR1TAB PO; +[UNRECOGNIZED DRUG - CODE] SQ
[2018-04-22] MEDS ORDERED: ONDANSETRON HCL 4 MG/2 ML VIAL ONE (19:48)
[2018-04-22] MEDS ORDERED: SODIUM CHLORIDE 0.9% 1000ML 1,000 ML IV ONE (19:48)
[2018-04-22] MEDS ORDERED: FAMOTIDINE/PF 20 MG/2 ML VIAL IV ONE (19:49)
[2018-04-22] MEDS ORDERED: PANTOPRAZOLE 40 MG/VIAL IVP ONE (19:50)
[2018-04-22 19:53] LABS: BASOPHILS % (AUTO) 0.2 % (0.0-5.0); EOSINOPHILS % (AUTO) 4.7 % (0.0-8.0); HEMATOCRIT 29.4 % (36-48); LYMPHOCYTES % (AUTO) 37.7 % (21.0-51.0); MEAN CORPUSCULAR HGB CONC 35.1 g/dL (32.0-36.0); MEAN CORPUSCULAR VOLUME 96.8 fL (79-99); MONOCYTES % (AUTO) 5.7 % (3.0-13.0); NEUTROPHILS % (AUTO) 51.7 % (40.0-77.0); PLATELET COUNT (AUTO) 382 K/uL (130-400); RED BLOOD CELL COUNT(AUTO) 3.04 MIL/uL (4.00-5.50); RED CELL DISTRIBUTION WIDTH 16.8 % (11.0-15.5); WHITE BLOOD COUNT (AUTO) 7.7 K/uL (4.8-10.8)
[2018-04-22 20:11] LABS: CREATININE 1.8 mg/dL (0.5-1.5); POTASSIUM 4.5 mmol/L (3.5-5.1)
[2018-04-22 20:12] LABS: INR 1.04 (0.85-1.15); PARTIAL THROMBOPLASTIN TIME 28.5 SEC (26.3-35.5); PROTHROMBIN TIME 10.9 SEC (9.6-11.6)
[2018-04-22 20:17] LABS: ALBUMIN 2.6 g/dL (3.5-5.0); BILIRUBIN,TOTAL 0.4 mg/dL (0.2-1.0); TOTAL PROTEIN, SERUM 7.3 g/dL (6.0-8.3)
== END 2018-04-22 21:57 | disposition home or self-care (01) ==
LOC: EDH 18:46
DX: R10.13 Epigastric pain (principal); R11.0 Nausea; E11.9 Type 2 diabetes mellitus without complications; I25.2 Old myocardial infarction; Z91.041 Radiographic dye allergy status
CPT/HCPCS: 36415; 80053; 82150; 83605; 83690; 85025; 85610; 85730; 93005; 96374; 96375; 99285; C9113; J2405; J3490; J7030

== ENCOUNTER 2018-05-24 09:41 | Day surgery (SDC) | payer MEDICAID ==
[2018-05-24 10:09] VITALS: BP 103/77
[2018-05-24] MEDS ORDERED: COSYNTROPIN 0.25 MG VIAL IVP SCH (11:00)
[2018-05-24 11:25] VITALS: BP 125/80
[2018-05-24 12:30] VITALS: BP 110/75
== END 2018-05-24 12:30 | disposition home or self-care (01) ==
LOC: SDC 09:41
PROVIDERS: ATTEND Internal Medicine Cardiovascular Disease
DX: Z13.29 Encounter for screening for other suspected endocrine disorder (principal)
CPT/HCPCS: 36415; 82533 ×3; J0834

== ENCOUNTER → 2018-06-08 | Outpatient (CLI) | payer MEDICAID | END | disposition home or self-care (01) | LOC: RAH 09:24 | PROVIDERS: ATTEND Internal Medicine | DX: R94.5 Abnormal results of liver function studies (principal); Z90.49 Acquired absence of other specified parts of digestive tract | CPT/HCPCS: 76700 ==

== ENCOUNTER 2018-06-12 21:57 | Emergency (ER) | payer MEDICAID ==
[2018-06-12 22:25] LABS: APPEARANCE,URINE Clear (CLEAR); BILIRUBIN,URINE Negative (NEGATIVE); COLOR,URINE Yellow (YELLOW); GLUCOSE, URINE (UA) Negative (NEGATIVE); KETONES,URINE Negative (NEGATIVE); LEUKOCYTE ESTERASE ,URINE Large (NEGATIVE); NITRATE,URINE Negative (NEGATIVE); OCCULT BLOOD,URINE Negative (NEGATIVE); PH,URINE 7.5 (5.0-8.0); PROTEIN,URINE Negative (NEGATIVE)
[2018-06-12 22:37] LABS: BACTERIA,URINE Few /HPF (None Seen); RBC,URINE 0-1 /HPF (0-1)
[2018-06-12 22:38] LABS: EOSINOPHILS % (AUTO) 1.8 % (0.0-8.0); HEMATOCRIT 38.8 % (36-48); LYMPHOCYTES % (AUTO) 38.8 % (21.0-51.0); MEAN CORPUSCULAR HEMOGLOBIN 30.4 pg (27.0-33.0); MEAN CORPUSCULAR HGB CONC 33.1 g/dL (32.0-36.0); MEAN CORPUSCULAR VOLUME 91.8 fL (79-99); NEUTROPHILS % (AUTO) 53.4 % (40.0-77.0); NUCLEATED RED BLOOD CELLS 0.1 % (0.0-0.19); PLATELET COUNT (AUTO) 363 K/uL (130-400); RED BLOOD CELL COUNT(AUTO) 4.23 MIL/uL (4.00-5.50); RED CELL DISTRIBUTION WIDTH 13.3 % (11.0-15.5); WHITE BLOOD COUNT (AUTO) 8.2 K/uL (4.8-10.8)
[2018-06-12] MEDS ORDERED: METOCLOPRAMIDE 10 MG/2 ML VIAL ONE (22:47)
[2018-06-12] MEDS ORDERED: SODIUM CHLORIDE 0.9% 1000ML 1,000 ML IV ONE (22:48)
[2018-06-12] MEDS ORDERED: ONDANSETRON HCL 4 MG/2 ML VIAL ONE (22:48)
[2018-06-12 22:49] LABS: CREATININE 1.3 mg/dL (0.5-1.5); POTASSIUM 3.5 mmol/L (3.5-5.1)
[2018-06-12] MEDS ORDERED: FAMOTIDINE/PF 20 MG/2 ML VIAL IV ONE (22:52)
[2018-06-12 22:54] LABS: ALBUMIN 3.3 g/dL (3.5-5.0); BILIRUBIN,TOTAL 0.5 mg/dL (0.2-1.0); TOTAL PROTEIN, SERUM 7.8 g/dL (6.0-8.3)
[2018-06-12] MEDS ORDERED: PANTOPRAZOLE 40 MG/VIAL IVP ONE (23:03)
[2018-06-13] MEDS ORDERED: SODIUM CHLORIDE 0.9% 1000ML 1,000 ML IV ONE (00:20)
[2018-06-13] MEDS ORDERED: CEFTRIAXONE SODIUM 1 GM ONE (00:20)
== END 2018-06-13 01:17 | disposition home or self-care (01) ==
LOC: EDH 21:57
DX: E86.9 Volume depletion, unspecified (principal); R11.10 Vomiting, unspecified; R10.13 Epigastric pain; I25.2 Old myocardial infarction; Z90.49 Acquired absence of other specified parts of digestive tract; Z90.710 Acquired absence of both cervix and uterus; Z98.890 Other specified postprocedural states
CPT/HCPCS: 36415; 80053; 81001; 83690; 85025; 96361; 96374; 96375; 99283; C9113; J0696; J2405; J2765; J3490; J7030 ×2

== ENCOUNTER → 2018-07-29 | Outpatient (CLI) | payer MEDICAID | END | disposition home or self-care (01) | LOC: RAH 10:02 | PROVIDERS: ATTEND Internal Medicine Gastroenterology | DX: R10.13 Epigastric pain (principal); R11.2 Nausea with vomiting, unspecified; R94.5 Abnormal results of liver function studies | CPT/HCPCS: 78264; 82525; 86709; A9541 ==

== ENCOUNTER 2018-08-31 19:17 | Observation (INO) | payer MEDICAID ==
[~2018-08-31] VITALS: Ht 160 cm; Wt 57.2 kg
[2018-08-31] MEDS ORDERED: POTASSIUM CHLORIDE 20 MEQ ERTAB PO ONE (20:02)
[2018-08-31] MEDS ORDERED: MAGNESIUM 2GM PREMIX 50ML 50 ML IV ONE (20:03)
[2018-08-31 20:31] LABS: APPEARANCE,URINE Clear (CLEAR); BILIRUBIN,URINE Negative (NEGATIVE); COLOR,URINE Yellow (YELLOW); GLUCOSE, URINE (UA) Negative (NEGATIVE); KETONES,URINE Negative (NEGATIVE); LEUKOCYTE ESTERASE ,URINE Trace (NEGATIVE); NITRATE,URINE Negative (NEGATIVE); OCCULT BLOOD,URINE Negative (NEGATIVE); PROTEIN,URINE Negative (NEGATIVE); UROBILINOGEN,URINE 0.2 mg/dL (0.2-1.0)
[2018-08-31] MEDS ORDERED: POTASSIUM CHLORIDE 10% ELIXIR 20 MEQ/15 ML UDCUP ONE (20:39)
[2018-08-31 20:40] LABS: BACTERIA,URINE Rare /HPF (None Seen); RBC,URINE 0-1 /HPF (0-1); SQUAMOUS EPITHELIAL CELL,UR Rare /HPF (0-2); WBC,URINE 0-1 /HPF (0-1)
[2018-08-31 20:44] LABS: BASOPHILS % (AUTO) 0.5 % (0.0-5.0); EOSINOPHILS % (AUTO) 2.4 % (0.0-8.0); HEMATOCRIT 28.5 % (36-48); LYMPHOCYTES % (AUTO) 39.2 % (21.0-51.0); MEAN CORPUSCULAR HEMOGLOBIN 32.2 pg (27.0-33.0); MEAN CORPUSCULAR HGB CONC 34.2 g/dL (32.0-36.0); MEAN CORPUSCULAR VOLUME 94.1 fL (79-99); MONOCYTES % (AUTO) 3.8 % (3.0-13.0); NEUTROPHILS % (AUTO) 54.1 % (40.0-77.0); PLATELET COUNT (AUTO) 297 K/uL (130-400); RED BLOOD CELL COUNT(AUTO) 3.03 MIL/uL (4.00-5.50); RED CELL DISTRIBUTION WIDTH 16.2 % (11.0-15.5); WHITE BLOOD COUNT (AUTO) 9.1 K/uL (4.8-10.8)
[2018-08-31 21:02] LABS: CREATININE 1.2 mg/dL (0.5-1.5); MAGNESIUM 1.9 mg/dL (1.80-2.40); POTASSIUM 2.6 mmol/L (3.5-5.1)
[2018-08-31 21:11] LABS: B-TYPE NATRIURETIC PEPTIDE 14 pg/mL (0-100)
[2018-08-31] MEDS ORDERED: LIDOCAINE HCL-MPF 1% 2ML VIAL IJ PRN (21:45)
[2018-08-31] MEDS ORDERED: AMILORIDE HCL 5 MG TABLET PO SCH (21:45)
[2018-08-31] MEDS ORDERED: POTASSIUM CHLORIDE 20 MEQ ERTAB PO PRN (21:45)
[2018-08-31] MEDS ORDERED: POTASSIUM CHLORIDE 20MEQ/100ML 100 ML IV PRN (21:45)
[2018-08-31] MEDS ORDERED: METHYLPREDNISOLONE SOD SUCC 125MG/2ML VIAL IVP SCH (21:45)
[2018-08-31] MEDS ORDERED: POTASSIUM CHLORIDE 10% ELIXIR 20 MEQ/15 ML UDCUP PO PRN (21:45)
[2018-08-31] MEDS ORDERED: POTASSIUM CHLORIDE 20MEQ/100ML 100 ML IV ONE (22:40)
[2018-08-31] MEDS ORDERED: LIDOCAINE HCL-MPF 1% 2ML VIAL ONE (22:40)
[2018-08-31] MEDS ORDERED: METHYLPREDNISOLONE SOD SUCC 125MG/2ML VIAL ONE (22:40)
[2018-09-01] MEDS ORDERED: LIDOCAINE HCL-MPF 1% 2ML VIAL ONE ×2 (00:26→04:40)
[2018-09-01] MEDS ORDERED: POTASSIUM CHLORIDE 10% ELIXIR 20 MEQ/15 ML UDCUP ONE ×3 (03:09→14:53)
[2018-09-01] MEDS ORDERED: POTASSIUM CHLORIDE 20MEQ/100ML 100 ML IV ONE (03:09)
[2018-09-01 06:15] LABS: BASOPHILS % (AUTO) 0.7 % (0.0-5.0); EOSINOPHILS % (AUTO) 0.1 % (0.0-8.0); HEMATOCRIT 30.6 % (36-48); LYMPHOCYTES % (AUTO) 17.2 % (21.0-51.0); MEAN CORPUSCULAR HEMOGLOBIN 31.6 pg (27.0-33.0); MEAN CORPUSCULAR HGB CONC 33.4 g/dL (32.0-36.0); MEAN CORPUSCULAR VOLUME 94.6 fL (79-99); MONOCYTES % (AUTO) 0.7 % (3.0-13.0); NEUTROPHILS % (AUTO) 81.3 % (40.0-77.0); PLATELET COUNT (AUTO) 332 K/uL (130-400); RED BLOOD CELL COUNT(AUTO) 3.23 MIL/uL (4.00-5.50); RED CELL DISTRIBUTION WIDTH 16.5 % (11.0-15.5); WHITE BLOOD COUNT (AUTO) 8.8 K/uL (4.8-10.8)
[2018-09-01 06:28] LABS: CREATININE 1.3 mg/dL (0.5-1.5); POTASSIUM 4.8 mmol/L (3.5-5.1)
[2018-09-01 06:33] LABS: ALBUMIN 3.4 g/dL (3.5-5.0); BILIRUBIN,TOTAL 0.3 mg/dL (0.2-1.0); TOTAL PROTEIN, SERUM 7.4 g/dL (6.0-8.3)
--- NOTE | 2018-09-01 10:56 | NUR ---
VARGAS Schwartz met with pt who is to [facility]of[facility]le[facility], but they still live together with their kids 12,8,6,3,,6months. 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 Pt has walker, w/c and shower chair. No HH. [place] Addendum: 09/01/18 at 1100 by DARIANA STEWART Amended: Links added.
[2018-09-01] MEDS ORDERED: POTASSIUM CHLORIDE 20 MEQ ERTAB PO ONE (14:47)
[2018-09-01] MEDS: FOLIC ACID/VITAMIN B COMP W-C 1 MG CAPSULE PO SCH (15:00)
[2018-09-01] MEDS: POTASSIUM CHLORIDE 20 MEQ ERTAB PO SCH ×2 (15:00→20:05)
[2018-09-01 16:03] LABS: CHLORIDE,URINE RANDOM 33 mmol/L (110-250); POTASSIUM,URINE RANDOM 10 mmol/L (25-125); SODIUM,URINE RANDOM 27 mmol/l (40-220)
[2018-09-01 17:15] VITALS: BP 144/58
[2018-09-01 17:41] LABS: BASOPHILS % (AUTO) 0.3 % (0.0-5.0); HEMATOCRIT 30.5 % (36-48); LYMPHOCYTES % (AUTO) 12.6 % (21.0-51.0); MEAN CORPUSCULAR HEMOGLOBIN 31.4 pg (27.0-33.0); MEAN CORPUSCULAR VOLUME 95.3 fL (79-99); MONOCYTES % (AUTO) 3.2 % (3.0-13.0); NEUTROPHILS % (AUTO) 83.9 % (40.0-77.0); PLATELET COUNT (AUTO) 352 K/uL (130-400); RED CELL DISTRIBUTION WIDTH 16.5 % (11.0-15.5)
[2018-09-01 17:53] LABS: CREATININE 1.1 mg/dL (0.5-1.5); MAGNESIUM 2.4 mg/dL (1.80-2.40); POTASSIUM 4.5 mmol/L (3.5-5.1)
[2018-09-01 20:00] VITALS: BP 108/71
[2018-09-01] MEDS ORDERED: PREDNISON PO (20:22)
[2018-09-02 00:19] VITALS: BP 99/48
[2018-09-02] MEDS ORDERED: PRED5TAB PO (04:27)
[2018-09-02 04:35] VITALS: BP 105/64
[2018-09-02 04:57] LABS: % IRON SATURATION 91.6 % (22-44)
[2018-09-02 07:54] VITALS: BP 113/74
[2018-09-02] MEDS: FOLIC ACID/VITAMIN B COMP W-C 1 MG CAPSULE PO SCH (08:11)
[2018-09-02] MEDS: POTASSIUM CHLORIDE 20 MEQ ERTAB PO SCH ×2 (08:12→08:17)
--- NOTE | 2018-09-02 08:20 | NUR ---
potassium elixer PT ASKED IF POTASSIUM 20MEQ COULD BE SWITCHED TO ELIXER DUE TO POTASSIUM TABLETS BEING "TOO BIG FOR HER" POTASSIUM ELIXER 20MEQ GIVEN ORDERED.
--- NOTE | 2018-09-02 12:25 | NUR ---
DISCHARGE DISCHARGE TEACHING DONE WITH PATIENT AND MOTHER USING TEACHBACK METHOD, VERBALIZED UNDERSTANDING. NO NOTED SOB OR DISTRESS. NEW MEDICATION ADMINISTRATION TEACHING DONE WITH PATIENT AND MOTHER USING TEACHBACK METHOD, VERBALIZED UNDERSTANDING. PT AWARE OF NEED TO FOLLOW UP WITH DR. SHAW, AND DR. TORIBIO. IV REMOVED, CATH TIP INTACT. HIGH POTASSIUM DIET TEACHING DONE WITH PATIENT, VERBALIZED UNDERSTANDING. PENDING TO BE TRANSFERRED OUT VIA PRIVATE VEHICLE.
== END 2018-09-02 12:46 | disposition home or self-care (01) ==
LOC: EDH 19:17 → EDHIP 19:18 → 4AH 09-01 16:54
PROVIDERS: ADMIT Internal Medicine; ATTEND Internal Medicine
DX: E87.6 Hypokalemia (principal); D64.9 Anemia, unspecified; E78.5 Hyperlipidemia, unspecified; D65 Disseminated intravascular coagulation [defibrination syndrome]; E27.40 Unspecified adrenocortical insufficiency; I47.2 Ventricular tachycardia; E87.5 Hyperkalemia; G93.1 Anoxic brain damage, not elsewhere classified; R57.8 Other shock; Z86.74 Personal history of sudden cardiac arrest; Z91.19 Patient's noncompliance with other medical treatment and regimen; Z99.2 Dependence on renal dialysis; Z90.49 Acquired absence of other specified parts of digestive tract; Z90.710 Acquired absence of both cervix and uterus; Z79.899 Other long term (current) drug therapy; Z88.8 Allergy status to other drugs, medicaments and biological substances
CPT/HCPCS: 36415 ×2; 71045; 80048; 80053; 81001; 81025; 82306; 82436; 82533; 82728; 83540; 83550; 83735 ×2; 83880; 83935; 84133; 84300; 85025 ×3; 86850; 86900; 86901; 93005; 99284; A4218; G0378 ×41; J2930; J3475; J3480 ×2; J3490 ×3

== ENCOUNTER → 2018-11-08 | Outpatient (CLI) | payer MEDICAID ==
--- NOTE | 2018-11-08 12:52 | NUR ---
MBSS COMPLETE. -S/S OF ASPIRATION. RECOMMEND REGULAR, THIN LIQUID DIET; PILLS WHOLE WITH LIQUIDS. PATIENT INFORMATION: Pt IS A 28 Y.O. FEMALE REFERRED FOR AN MBSS SECONDARY TO DIFFICULTY SWALLOWING. Pt AAOX3 AND COOPERATIVE AT THE TIME OF THE EVALUATION. Pt AMBULATED INDEPENDENTLY INTO ROOM. Pt REPORTS THAT SHE HAD DIFFICULTLY SWALLOWING MEATS AND FELT PILLS STUCK IN THE BACK OF HER THROAT. Pt HAS A PAST MEDICAL HISTORY SIGNIFICANT FOR ADRENAL INSUFFICIENCY, AMNIOTIC FLUID EMBOLISM, DVT TO LEFT UPPER EXTREMITY, GESTATIONAL DIABETES, CARDIAC ARREST, STOMACH DRAIN FROM GESTATIONAL COMPLICATION. MBSS INTERPRETATION: SWALLOW FUNCTION AND EFFICIENCY WITHIN FUNCTIONAL LIMITS. ORAL MOTOR STRENGTH, COORDINATION, AND ROM WITHIN FUNCTIONAL LIMITS. LARYNGEAL ELEVATION/EXCURSION STRONG WITH TIMELY PHARYNGEAL RESPONSE. NO OVERT SIGNS OR SYMPTOMS OF ASPIRATION PRESENT DURING MBSS. A-P VIEW: TOTAL BOLUS TRANSIT TIME OF 20 SECONDS, MINIMAL BOLUS REFLUX NOTED IN UPPER 1/3 OF ESOPHAGUS ABLE TO CLEAR, SLOW BOLUS MOTILITY NOTED IN ESOPHAGUS. RECOMMENDATIONS: 1. REGULAR TEXTURE, THIN LIQUID DIET; PILLS WHOLE WITH LIQUIDS. 2. COMPENSATORY STRATEGIES (PROPHYLAXIS): *SEATED AT 90 DEGREE ANGLE *REMAIN UPRIGHT 30 MINUTES AFTER MEAL TIMES 3. GI CONSULT SECONDARY TO A-P FINDINGS. G-CODES SWALLOWING: [id number] Addendum: 11/08/18 at [address] Amended: Links added.
== END | disposition home or self-care (01) ==
LOC: RAH 09:49
PROVIDERS: ATTEND Internal Medicine
DX: R13.12 Dysphagia, oropharyngeal phase (principal)
CPT/HCPCS: 74230; 92611

== ENCOUNTER 2018-12-04 22:50 | Emergency (ER) | payer MEDICAID ==
[2018-12-04] MEDS ORDERED: SODIUM CHLORIDE 0.9% 1000ML 2,000 ML IV ONE (23:14)
[2018-12-04 23:17] LABS: APPEARANCE,URINE CLEAR (CLEAR); BILIRUBIN,URINE NEGATIVE (NEGATIVE); COLOR,URINE YELLOW (YELLOW); GLUCOSE, URINE (UA) NEGATIVE (NEGATIVE); KETONES,URINE NEGATIVE (NEGATIVE); LEUKOCYTE ESTERASE ,URINE MODERATE (NEGATIVE); NITRATE,URINE NEGATIVE (NEGATIVE); OCCULT BLOOD,URINE NEGATIVE (NEGATIVE); PROTEIN,URINE NEGATIVE (NEGATIVE); UROBILINOGEN,URINE 0.2 mg/dL (0.2-1.0)
[2018-12-04] MEDS ORDERED: ACETAMINOPHEN EXTRA STRENGTH 500 MG TABLET ONE (23:17)
[2018-12-04 23:27] LABS: RBC,URINE 0-1 /HPF (0-1)
[2018-12-04 23:28] LABS: BACTERIA,URINE Few /HPF (None Seen); MUCUS,URINE Few LPF (None Seen); SQUAMOUS EPITHELIAL CELL,UR Few /HPF (0-2)
[2018-12-04 23:48] LABS: BASOPHILS % (AUTO) 0.5 % (0.0-5.0); EOSINOPHILS % (AUTO) 1.4 % (0.0-8.0); HEMATOCRIT 40.7 % (36-48); LYMPHOCYTES % (AUTO) 18.4 % (21.0-51.0); MEAN CORPUSCULAR HEMOGLOBIN 31.2 pg (27.0-33.0); MEAN CORPUSCULAR HGB CONC 33.1 g/dL (32.0-36.0); MEAN CORPUSCULAR VOLUME 94.2 fL (79-99); MONOCYTES % (AUTO) 5.8 % (3.0-13.0); NEUTROPHILS % (AUTO) 73.9 % (40.0-77.0); NUCLEATED RED BLOOD CELLS 0.1 % (0.0-0.19); PLATELET COUNT (AUTO) 300 K/uL (130-400); RED BLOOD CELL COUNT(AUTO) 4.32 MIL/uL (4.00-5.50); RED CELL DISTRIBUTION WIDTH 12.8 % (11.0-15.5); WHITE BLOOD COUNT (AUTO) 8.1 K/uL (4.8-10.8)
[2018-12-04 23:56] LABS: CARBON DIOXIDE 31 mmol/L (21-32); CHLORIDE 103 mmol/L (101-111); CREATININE 1.4 mg/dL (0.5-1.5); GLOMERULAR FILTR. RATE CALC 47 mL/min (>60); GLUCOSE,RANDOM 101 mg/dL (70-105); POTASSIUM 3.8 mmol/L (3.5-5.1); SODIUM SERUM 142 mmol/L (136-145); UREA NITROGEN, BLOOD 26 mg/dL (7-18)
[2018-12-05] LABS: INR 0.89 (0.85-1.15); PARTIAL THROMBOPLASTIN TIME 30.3 SEC (26.3-35.5); PROTHROMBIN TIME 9.4 SEC (9.6-11.6)
[2018-12-05 00:07] LABS: ALANINE AMINOTRANSFERASE 35 U/L (12-78); ALBUMIN 4.4 g/dL (3.5-5.0); ASPARTATE AMINOTRANSFERASE 27 U/L (10-37); BILIRUBIN,TOTAL 0.2 mg/dL (0.2-1.0); CREATINE KINASE, TOTAL 50 U/L (21-232); MYOGLOBIN 31 ng/mL (10-92); TOTAL PROTEIN, SERUM 8.6 g/dL (6.0-8.3); TROPONIN I < 0.04 ng/mL (0.00-0.06)
== END 2018-12-05 01:39 | disposition home or self-care (01) ==
LOC: EDH 22:50
DX: K52.9 Noninfective gastroenteritis and colitis, unspecified (principal); R50.9 Fever, unspecified; I25.2 Old myocardial infarction; Z91.040 Latex allergy status; Z91.048 Other nonmedicinal substance allergy status
CPT/HCPCS: 36415; 71045; 80053; 81001; 82550; 83605; 83874; 84484; 85025; 85610; 85730; 87040 ×2; 87088; 93005; 96361; 96374; 99285; J7030

== ENCOUNTER 2020-03-13 07:03 | Emergency (ER) | payer MEDICAID ==
[2020-03-13] MEDS ORDERED: ONDANSETRON HCL 4 MG/2 ML VIAL ONE (07:41)
[2020-03-13] MEDS ORDERED: SODIUM CHLORIDE 0.9% 1000ML 1,000 ML IV ONE (07:41)
[2020-03-13] MEDS ORDERED: KETOROLAC TROMETHAMINE 30MG/ML ONE (07:42)
[2020-03-13 08:32] LABS: BASOPHILS % (AUTO) 1.2 % (0.0-5.0); EOSINOPHILS % (AUTO) 4.5 % (0.0-8.0); HEMATOCRIT 45.4 % (36-48); LYMPHOCYTES % (AUTO) 51.2 % (21.0-51.0); MEAN CORPUSCULAR HEMOGLOBIN 30.4 pg (27.0-33.0); MEAN CORPUSCULAR HGB CONC 32.4 g/dL (32.0-36.0); MONOCYTES % (AUTO) 4.3 % (3.0-13.0); NEUTROPHILS % (AUTO) 38.6 % (40.0-77.0); PLATELET COUNT (AUTO) 206 K/uL (130-400); RED BLOOD CELL COUNT(AUTO) 4.83 MIL/uL (4.00-5.50); RED CELL DISTRIBUTION WIDTH 12.3 % (11.0-15.5); WHITE BLOOD COUNT (AUTO) 8.1 K/uL (4.8-10.8)
[2020-03-13 08:41] LABS: CREATININE 1.4 mg/dL (0.5-1.5); POTASSIUM 4.1 mmol/L (3.5-5.1)
[2020-03-13 08:45] LABS: ALBUMIN 4.4 g/dL (3.5-5.0); BILIRUBIN,DIRECT 0.1 mg/dL (0.0-0.3); BILIRUBIN,TOTAL 0.5 mg/dL (0.2-1.0); TOTAL PROTEIN, SERUM 8.8 g/dL (6.0-8.3)
[2020-03-13 09:30] LABS: BILIRUBIN,URINE Negative (NEGATIVE); COLOR,URINE Yellow (YELLOW); GLUCOSE, URINE (UA) Negative (NEGATIVE); KETONES,URINE Negative (NEGATIVE); LEUKOCYTE ESTERASE ,URINE Negative (NEGATIVE); NITRATE,URINE Negative (NEGATIVE); OCCULT BLOOD,URINE Negative (NEGATIVE); PROTEIN,URINE Negative (NEGATIVE); UROBILINOGEN,URINE 0.2 mg/dL (0.2-1.0)
[2020-03-13 09:32] LABS: HCG,QUAL RESULT NEGATIVE (NEGATIVE)
[2020-03-13 09:34] LABS: APPEARANCE,URINE CLEAR (CLEAR)
[2020-03-13 09:38] LABS: AMPHET/METH SCREEN,URINE NEGATIVE (NEGATIVE); BARBITURATE SCREEN, URINE NEGATIVE (NEGATIVE); BENZODIAZEPINES SCREEN,URINE NEGATIVE (NEGATIVE); CANNABINOID SCREEN,URINE NEGATIVE (NEGATIVE); COCAINE SCREEN,URINE NEGATIVE (NEGATIVE); OPIATE SCREEN,URINE NEGATIVE (NEGATIVE); PHENCYCLIDINE SCREEN,URINE NEGATIVE (NEGATIVE)
== END 2020-03-13 10:17 | disposition home or self-care (01) ==
LOC: EDH 07:03
DX: R10.31 Right lower quadrant pain (principal); R11.0 Nausea; M54.5 Low back pain; E11.22 Type 2 diabetes mellitus with diabetic chronic kidney disease; N18.9 Chronic kidney disease, unspecified; I25.2 Old myocardial infarction; Z91.040 Latex allergy status; Z88.8 Allergy status to other drugs, medicaments and biological substances; Z98.890 Other specified postprocedural states
CPT/HCPCS: 36415; 74176; 80048; 80076; 80305; 81003; 81025; 82550; 83690; 85025; 96374; 96375; 99284; J1885; J2405; J7030

== ENCOUNTER 2020-03-25 07:00 | Day surgery (SDC) | payer MEDICAID ==
[~2020-03-25] VITALS: Ht 160 cm; Wt 83.0 kg
[~2020-03-25 07:00] MED LIST changes: -AMIL5TAB8 PO; -MAGOX PO; -METO25 PO; -NYST5ORA7 PO; -PANT40TA PO; -PHOSLOC PO; -POLY17PO4 PO; -PREN1TAB26 PO; +SODIUM CHLORIDE 0.9% 1000ML 1,000 ML IV ONE; -SUCR1TAB PO; -[UNRECOGNIZED DRUG - CODE] SQ
[2020-03-25 08:08] VITALS: BP 107/68
[2020-03-25] MEDS ORDERED: ESTR1PAT86 TD (08:26)
[2020-03-25] MEDS ORDERED: PANT20TA18 PO (08:26)
[2020-03-25] MEDS ORDERED: NAPR500T6 PO (08:26)
[2020-03-25] MEDS ORDERED: PROPOFOL 10 MG/ML 20ML VIAL IV ONE (09:46)
[2020-03-25 10:00] VITALS: BP 98/58
[2020-03-25 10:30] VITALS: BP 110/65
== END 2020-03-25 10:38 | disposition home or self-care (01) ==
LOC: DAH 07:00 → EDSTATUS 07:03 → DAH 10:38
PROVIDERS: ATTEND Internal Medicine
DX: R94.5 Abnormal results of liver function studies (principal); K31.89 Other diseases of stomach and duodenum; R74.8 Abnormal levels of other serum enzymes; Z20.828 Contact with and (suspected) exposure to other viral communicable diseases
CPT/HCPCS: 36415; 43237; 43239; A4215; A4221; A4222; A4223; A4606; A4620; A4663; C9803; J2704; J7030; U0003

== ENCOUNTER → 2020-08-28 | Outpatient (CLI) | payer MEDICAID ==
[~2020-08-28] MED LIST changes: +ESTR1PAT86 TD; +NAPR500T6 PO; +PANT20TA18 PO; -SODIUM CHLORIDE 0.9% 1000ML 1,000 ML IV ONE
== END | disposition home or self-care (01) ==
LOC: RAH 08:41
PROVIDERS: ATTEND Internal Medicine
DX: R16.0 Hepatomegaly, not elsewhere classified (principal); K76.0 Fatty (change of) liver, not elsewhere classified; R74.8 Abnormal levels of other serum enzymes; R10.0 Acute abdomen
CPT/HCPCS: 76700

== ENCOUNTER → 2020-12-10 | Outpatient (CLI) | payer MEDICAID | END | disposition home or self-care (01) | LOC: SHCH 15:33 | PROVIDERS: ATTEND Internal Medicine Cardiovascular Disease | DX: I42.9 Cardiomyopathy, unspecified (principal) | CPT/HCPCS: 93306; 93356 ==

== ENCOUNTER 2021-01-30 15:32 | Emergency (ER) | payer MEDICAID ==
[~2021-01-30] VITALS: Ht 160 cm; Wt 84.8 kg
[2021-01-30 15:34] VITALS: BP 117/80
[2021-01-30 16:13] LABS: BASOPHILS % (AUTO) 1.6 % (0.0-5.0); EOSINOPHILS % (AUTO) 3.7 % (0.0-8.0); HEMATOCRIT 42.9 % (36-48); LYMPHOCYTES % (AUTO) 51.7 % (21.0-51.0); MEAN CORPUSCULAR HEMOGLOBIN 30.9 pg (27.0-33.0); MEAN CORPUSCULAR HGB CONC 32.6 g/dL (32.0-36.0); MEAN CORPUSCULAR VOLUME 94.7 fL (79-99); MONOCYTES % (AUTO) 5.4 % (3.0-13.0); NEUTROPHILS % (AUTO) 37.2 % (40.0-77.0); PLATELET COUNT (AUTO) 251 K/uL (130-400); RED BLOOD CELL COUNT(AUTO) 4.53 MIL/uL (4.00-5.50); RED CELL DISTRIBUTION WIDTH 12.5 % (11.0-15.5)
[2021-01-30 16:24] LABS: CREATININE 1.5 mg/dL (0.5-1.5); POTASSIUM 3.6 mmol/L (3.5-5.1)
[2021-01-30 16:26] LABS: APPEARANCE,URINE Clear (CLEAR); BILIRUBIN,URINE Negative (NEGATIVE); COLOR,URINE Yellow (YELLOW); GLUCOSE, URINE (UA) Negative (NEGATIVE); KETONES,URINE Negative (NEGATIVE); LEUKOCYTE ESTERASE ,URINE Negative (NEGATIVE); NITRATE,URINE Negative (NEGATIVE); OCCULT BLOOD,URINE Negative (NEGATIVE); PROTEIN,URINE Negative (NEGATIVE); UROBILINOGEN,URINE 0.2 mg/dL (0.2-1.0)
[2021-01-30 16:28] LABS: ALBUMIN 4.3 g/dL (3.5-5.0); BILIRUBIN,TOTAL 0.3 mg/dL (0.2-1.0); TOTAL PROTEIN, SERUM 8.5 g/dL (6.0-8.3)
[2021-01-30] MEDS ORDERED: ONDA4TAB10 PO (17:34)
[2021-01-30] MEDS ORDERED: DICY20TA2 PO (17:34)
== END 2021-01-30 17:59 | disposition home or self-care (01) ==
LOC: EDH 15:32
DX: R10.9 Unspecified abdominal pain (principal); Z91.048 Other nonmedicinal substance allergy status; Z79.899 Other long term (current) drug therapy; Z90.49 Acquired absence of other specified parts of digestive tract; Z98.890 Other specified postprocedural states; Z86.74 Personal history of sudden cardiac arrest
CPT/HCPCS: 36415; 74176; 80053; 81003; 82150; 83690; 85025

== ENCOUNTER → 2021-02-07 | Outpatient (CLI) | payer MEDICAID ==
[~2021-02-07] MED LIST changes: +DICY20TA2 PO; +ONDA4TAB10 PO
[2021-02-07 12:50] LABS: BASOPHILS % (AUTO) 1.2 % (0.0-5.0); EOSINOPHILS % (AUTO) 3.5 % (0.0-8.0); HEMATOCRIT 43.8 % (36-48); LYMPHOCYTES % (AUTO) 50.6 % (21.0-51.0); MEAN CORPUSCULAR HEMOGLOBIN 30.4 pg (27.0-33.0); MEAN CORPUSCULAR VOLUME 95.2 fL (79-99); MONOCYTES % (AUTO) 4.9 % (3.0-13.0); NEUTROPHILS % (AUTO) 39.6 % (40.0-77.0); PLATELET COUNT (AUTO) 281 K/uL (130-400); RED CELL DISTRIBUTION WIDTH 12.6 % (11.0-15.5); WHITE BLOOD COUNT (AUTO) 8.9 K/uL (4.8-10.8)
== END | disposition home or self-care (01) ==
LOC: LAB 11:28
PROVIDERS: ATTEND Internal Medicine
DX: D64.81 Anemia due to antineoplastic chemotherapy (principal); D84.821 Immunodeficiency due to drugs; E27.49 Other adrenocortical insufficiency; R74.8 Abnormal levels of other serum enzymes
CPT/HCPCS: 36415; 85025

== ENCOUNTER 2021-02-13 07:57 | Day surgery (SDC) | payer MEDICAID ==
[2021-02-13 08:06] VITALS: BP 118/76
[2021-02-13 08:31] LABS: BASOPHILS % (AUTO) 0.8 % (0.0-5.0); EOSINOPHILS % (AUTO) 1.1 % (0.0-8.0); HEMATOCRIT 43.5 % (36-48); LYMPHOCYTES % (AUTO) 24.4 % (21.0-51.0); MEAN CORPUSCULAR HEMOGLOBIN 30.9 pg (27.0-33.0); MEAN CORPUSCULAR HGB CONC 32.6 g/dL (32.0-36.0); MEAN CORPUSCULAR VOLUME 94.8 fL (79-99); MONOCYTES % (AUTO) 5.2 % (3.0-13.0); NEUTROPHILS % (AUTO) 68.1 % (40.0-77.0); PLATELET COUNT (AUTO) 267 K/uL (130-400); RED BLOOD CELL COUNT(AUTO) 4.59 MIL/uL (4.00-5.50); RED CELL DISTRIBUTION WIDTH 12.5 % (11.0-15.5); WHITE BLOOD COUNT (AUTO) 13.2 K/uL (4.8-10.8)
[2021-02-13] MEDS ORDERED: COSYNTROPIN 0.25 MG VIAL IVP SCH (09:00)
[2021-02-13 09:10] VITALS: BP 121/81
[2021-02-13 10:20] VITALS: BP 120/82
== END 2021-02-13 10:22 | disposition home or self-care (01) ==
LOC: DAH 07:57
PROVIDERS: ATTEND Internal Medicine
DX: E27.49 Other adrenocortical insufficiency (principal); D84.81 Immunodeficiency due to conditions classified elsewhere; R74.8 Abnormal levels of other serum enzymes; Z79.899 Other long term (current) drug therapy; Z90.49 Acquired absence of other specified parts of digestive tract
CPT/HCPCS: 36415; 82533 ×3; 85025; 96374; J0834

== ENCOUNTER → 2021-09-10 | Outpatient (CLI) | payer MEDICAID | END | disposition home or self-care (01) | LOC: RAH 10:50 | PROVIDERS: ATTEND Internal Medicine | DX: G43.109 Migraine with aura, not intractable, without status migrainosus (principal); H53.19 Other subjective visual disturbances; R20.0 Anesthesia of skin | CPT/HCPCS: 70551 ==

== ENCOUNTER → 2021-10-22 | Outpatient (CLI) | payer MEDICAID ==
[2021-10-22 12:43] LABS: CREATININE 1.3 mg/dL (0.5-1.5); MAGNESIUM 2.1 mg/dL (1.80-2.40); POTASSIUM 4.1 mmol/L (3.5-5.1)
== END | disposition home or self-care (01) ==
LOC: LAB 08:37
PROVIDERS: ATTEND Internal Medicine Cardiovascular Disease
DX: I42.9 Cardiomyopathy, unspecified (principal); E27.40 Unspecified adrenocortical insufficiency
CPT/HCPCS: 36415; 80048; 83735; 83880

== ENCOUNTER 2022-07-06 17:26 | Emergency (ER) | payer MEDICAID ==
[~2022-07-06] VITALS: Ht 160 cm; Wt 78.0 kg
[2022-07-06 17:46] VITALS: BP 152/103
[2022-07-06 18:20] LABS: APPEARANCE,URINE CLEAR (CLEAR); BILIRUBIN,URINE NEGATIVE (NEGATIVE); COLOR,URINE COLORLESS (YELLOW); GLUCOSE, URINE (UA) NEGATIVE (NEGATIVE); KETONES,URINE NEGATIVE (NEGATIVE); LEUKOCYTE ESTERASE ,URINE NEGATIVE Leu/uL (NEGATIVE); NITRATE,URINE NEGATIVE (NEGATIVE); OCCULT BLOOD,URINE NEGATIVE (NEGATIVE); PH,URINE 5.5 (5.0-8.0); PROTEIN,URINE NEGATIVE (NEGATIVE); UROBILINOGEN,URINE 0.2 mg/dL (0.2-1.0)
[2022-07-06 18:25] LABS: BASOPHILS % (AUTO) 1.5 % (0.0-5.0); EOSINOPHILS % (AUTO) 2.8 % (0.0-8.0); HEMATOCRIT 47.3 % (36-48); LYMPHOCYTES % (AUTO) 55.7 % (21.0-51.0); MEAN CORPUSCULAR HEMOGLOBIN 29.9 pg (27.0-33.0); MEAN CORPUSCULAR HGB CONC 32.8 g/dL (32.0-36.0); MEAN CORPUSCULAR VOLUME 91.1 fL (79-99); MONOCYTES % (AUTO) 4.7 % (3.0-13.0); NEUTROPHILS % (AUTO) 35.2 % (40.0-77.0); PLATELET COUNT (AUTO) 272 K/uL (130-400); RED BLOOD CELL COUNT(AUTO) 5.19 MIL/uL (4.00-5.50); RED CELL DISTRIBUTION WIDTH 12.6 % (11.0-15.5); WHITE BLOOD COUNT (AUTO) 7.4 K/uL (4.8-10.8)
[2022-07-06 18:39] LABS: CREATININE 1.3 mg/dL (0.5-1.5); POTASSIUM 3.6 mmol/L (3.5-5.1)
[2022-07-06 18:48] LABS: ALBUMIN 4.5 g/dL (3.5-5.0); TOTAL PROTEIN, SERUM 8.9 g/dL (6.0-8.3)
[2022-07-06] MEDS ORDERED: DiphenhydrAMINE HCL 50 MG/ML VIAL IV ONE (20:00)
[2022-07-06] MEDS ORDERED: 0.9%NACL 1000ML 1,000 ML IV ONE (20:00)
[2022-07-06] MEDS ORDERED: PROCHLORPERAZINE 10MG/2ML INJ IV ONE (20:00)
== END 2022-07-06 20:56 | disposition home or self-care (01) ==
LOC: EDH 17:26
DX: G43.909 Migraine, unspecified, not intractable, without status migrainosus (principal); E03.9 Hypothyroidism, unspecified; N18.9 Chronic kidney disease, unspecified; Z79.1 Long term (current) use of non-steroidal anti-inflammatories (NSAID); Z79.899 Other long term (current) drug therapy; Z90.49 Acquired absence of other specified parts of digestive tract; Z90.710 Acquired absence of both cervix and uterus
CPT/HCPCS: 99285; 96374; 70450; 96361; 96375; 84484; 80053; 85025; 81003; 36415; 93005; J1200; J7030; J0780

== ENCOUNTER → 2022-07-22 | Outpatient (CLI) | payer MEDICAID | END | disposition home or self-care (01) | LOC: RAH 14:52 | PROVIDERS: ATTEND Internal Medicine | DX: I88.9 Nonspecific lymphadenitis, unspecified (principal) | CPT/HCPCS: 76536 ==

== ENCOUNTER → 2022-11-30 | Outpatient (CLI) | payer MEDICAID | END | disposition home or self-care (01) | LOC: RAH 12:54 | PROVIDERS: ATTEND Internal Medicine | DX: M70.71 Other bursitis of hip, right hip (principal) | CPT/HCPCS: 73502 ==

== ENCOUNTER 2024-11-03 14:53 | Emergency (ER) | payer SELFPAY ==
[~2024-11-03] VITALS: Ht 160 cm; Wt 75.7 kg
[~2024-11-03 14:53] MED LIST changes: +NAPR-1506 PO; -NAPR500T6 PO; +ONDA-243 PO; -ONDA4TAB10 PO
--- NOTE | 2024-11-03 15:07 | ERN ---
ED Note History of Present Illness Stated Complaint: SHAKY,FAINT Chief Complaint: Syncope Time Seen by MD: 15:00 Dictation: PATIENT IS A 34-YEAR-OLD FEMALE COMING IN TODAY WITH COMPLAINTS OF BEING SHAKY AND FEELING FAINT SINCE TWO DAYS AGO. NO FEVER NO CHILLS NO NAUSEA VOMITING NO CHEST PAIN NO BACK PAIN NO SOB. SHE STATES SHE DOES HAVE A HISTORY OF CARDIOMYOPATHY THAT WAS DIAGNOSED WHILE SHE WAS TWO YEARS AGO, SAW DR. YOUNG AND DR BLANCHARD. SHE SAID THEY DID FURTHER TESTING IN SAID IT WAS NOT CARDIOMYOPATHY. Allergies: Coded Allergies: No Known Allergies (Unverified Allergy, Unknown, 03/02/15) adhesive tape (Unverified Allergy, Unknown, REDNESS, 11/11/17) Home Meds Active Scripts Ondansetron (Ondansetron Odt) 4 Mg Tab.rapdis, 4 MG PO QIDP, #28 TAB Prov:LADONNA CARDENAS 01/30/21 Dicyclomine HCl (Bentyl) 20 Mg Tab, 20 MG PO QIDP, #28 TAB Prov:LADONNA CARDENAS 01/30/21 Reported Medications Naproxen (Naproxen) 500 Mg Tablet.dr, 500 MG PO DAILY, TAB 03/25/20 Pantoprazole Sodium (Pantoprazole Sodium) 20 Mg Tablet.dr, 20 MG PO DAILY, TAB 03/25/20 Estradiol (Estradiol) 1 Each Patch.tdsw, 1 EACH TD QWEEK 03/25/20 Past Medical History Past Medical History: Anemia, Heart Disease, Hypothyroid, Renal Disese Additional Past Medical Hx: EMBOLISM, CARDIAC ARREST ADDISONS, Surgical History: Hysterectomy, Cholecystectomy, Surgical History Other: EXPLORATORY ABD SURGERY History: Not Applicable RN Note Reviewed/Agreed w/PFSH: Yes Review of System Dictation CONSTITUTIONAL: Negative except for HPI HEAD/FACE: Negative except for HPI EENT: Negative except for HPI RESPIRATORY: Negative except for HPI GASTROINTESTINAL/ABDOMINAL: Negative except for HPI GENITOURINARY: Negative except for HPI MUSCULOSKELETAL: Negative except for HPI INTEGUMENTARY: Negative except for HPI NEUROLOGICAL/PSYCH: Negative except for HPI HEMATOLOGIC/LYMPHATIC: Negative except for HPI All Systems Negative, Except as noted above. 13 point review of systems assessed and all negative except for above. Initial Vital Sign VS Vital Signs Date Time Temp Pulse Resp B/P (MAP) Pulse Ox O2 Delivery O2 Flow Rate FiO2 11/03/24 15:01 98.2 73 20 174/112 100 Room Air 11/03/24 15:33 0 21 Physical Exam Dictation Vital Signs reviewed General Appearance: Alert, oriented x 3, no acute distress, well developed, nourished. OB Head and Face: non-traumatic. Eyes: PERRL, pink conjunctivas, eyelid no trauma, anterior chamber with arcus senilis. Ears: Pinnas intact and no signs of trauma or erythema ear canals clear and no discharge TM no erythema Nose: No discharge, no bleeding. Oropharynx: Mouth normal, tongue pink, pharynx clear,no erythema, tonsils no exudates, no abscesses noted, mucous membrane moist Neck: Supple, non-tender, no thyromegaly, no masses, no JVD, no bruits Breast:Deferred Chest:No tenderness, no crepitus, no paradoxical movement, no retractions Lungs:Clear, well-ventilated, symmetric, no rales, no wheezing, no rhonchi, no stridor, good breath sounds bilaterally Heart: Regular rate, regular rhythm, no murmur, no gallops Vascular: no peripheral edema, Abdomen: Soft, positive bowel sounds, nondistended, no guarding, nontender, no rebound, no masses no hepatomegaly, no splenomegaly, no Jo's sign, no hernias. Rectal: Deferred Genital: Deferred Neurological: Normal speech, motor function intact, sensory function intact Musculoskeletal: Neck nontender, full range of motion, back nontender, full range of motion, Extremities: nontender, full range of motion Skin: Color pink, dry, no turgor, no rash, no lacerations, no abrasions, no contusions. Lymphatic: Deferred Results (Laboratory/Radiology) Laboratory/Radiology Laboratory Tests Test 11/03/24 15:06 11/03/24 15:15 Whole Blood Glucose 98 MG/DL (70-110) White Blood Count 7.7 K/uL (4.8-10.8) Red Blood Count 4.46 MIL/uL (4.00-5.50) Hemoglobin 13.7 g/dL (12.0-16.0) Hematocrit 41.6 % (36-48) Mean Corpuscular Volume 93.3 fL (79-99) Mean Corpuscular Hemoglobin 30.7 pg (27.0-33.0) Mean Corpuscular Hemoglobin Concent 32.9 g/dL (32.0-36.0) Red Cell Distribution Width 12.4 % (11.0-15.5) Platelet Count 243 K/uL (130-400) Mean Platelet Volume 10.1 fL (7.5-10.5) Immature Granulocyte % (Auto) 0.3 % (0-1) Neutrophils (%) (Auto) 35.4 % (40.0-77.0) L Lymphocytes (%) (Auto) 53.8 % (21.0-51.0) H Monocytes (%) (Auto) 4.5 % (3.0-13.0) Eosinophils (%) (Auto) 4.4 % (0.0-8.0) Basophils (%) (Auto) 1.6 % (0.0-5.0) Neutrophils # (Auto) 2.7 K/uL (1.8-7.7) Lymphocytes # (Auto) 4.2 K/uL (1.0-4.8) Monocytes # (Auto) 0.4 K/uL (0.1-1.0) Eosinophils # (Auto) 0.34 K/uL (0.00-0.70) Basophils # (Auto) 0.12 K/uL (0.00-0.20) Absolute Immature Granulocyte (auto 0.02 K/uL (0-1) Nucleated Red Blood Cells 0.0 % (0.0-0.19) Sodium Level 140 mmol/L (136-145) Potassium Level 3.1 mmol/L (3.5-5.1) L Chloride Level 101 mmol/L (101-111) Carbon Dioxide Level 30 mmol/L (21-32) Blood Urea Nitrogen 11 mg/dL (7-18) Creatinine 1.6 mg/dL (0.5-1.0) H Glomerular Filtration Rate Calc 43 mL/min (>90) Random Glucose 75 mg/dL (70-105) Total Calcium 9.3 mg/dL (8.5-10.1) Magnesium Level 2.30 mg/dL (1.80-2.40) Troponin I High Sensitivity < 4 ng/L (4-50) L B-Type Natriuretic Peptide 12 pg/mL (0-100) Labs Reviewed?: Yes EKG Comment: EKG sinus rhythm/heart rate 69/axis normal/T-wave inversion lead V4 V5 ED Course ED Course Orders Procedure Category Date Status Time Cbc With Differential LAB 11/03/24 Complete 15:05 B-Type Natriuretic LAB 11/03/24 Complete Peptide 15:05 12 Lead Ekg Tracing- EKG 11/03/24 Complete Technical 15:05 Magnesium LAB 11/03/24 Complete 15:05 Troponin I High LAB 11/03/24 Complete Sensitivity 15:05 Basic Metabolic Panel LAB 11/03/24 Complete 15:05 Clonidine Hcl 0.1 Mg PHA 11/03/24 Complete Tablet (Catapres 0. 16:00 Potassium Bicarb/Cit PHA 11/03/24 Complete Ac 25meq (K-Lyte Ta 16:00 Current Medications Medications (Trade) Dose Ordered Sig/[place] Route PRN Reason Start Time Stop Time Status Last Admin Dose Admin Clonidine HCl (CATApres 0.1 mg TAB) 0.1 mg ONCE ONCE PO 11/03/24 16:00 11/03/24 16:01 DC 11/03/24 15:38 Potassium Bicarbonate (K-Lyte Tablet Eff 25 Meq Tablet.eff) 25 meq ONCE ONCE PO 11/03/24 16:00 11/03/24 16:01 DC 11/03/24 16:00 Vital Signs Date Time Temp Pulse Resp B/P (MAP) Pulse Ox O2 Delivery O2 Flow Rate FiO2 11/03/24 16:29 98.2 64 16 155/112 99 Room Air* 0 21 11/03/24 15:38 75 175/115 11/03/24 15:33 98.2 75 18 175/115 100 Room Air* 0 21 11/03/24 15:01 98.2 73 20 174/112 100 Room Air 1715/repeat blood pressure 144/92/heart rate is normal. Patient also had potassium replaced. States she feels better and wishes to go home. HEART Score Response (Comments) Value EKG: Repolarization changes 1 Age: < 45yrs (0) 0 Risk Factors: No known risk factors (0) 0 Initial Troponin: Normal limit (0) 0 Total 1 Medical Decision Making MDM Medical discharge making based on cardiac workup with the EKG EKG with T-wave changes V4 V5 Potassium 3.10 was replaced Patient was hypertensive on arrival, given clonidine 0.1 p.o. Repeat blood pressure 144/92 Patient states she feels better and we will see her primary care doctor tomorrow at bedside and all questions answered Primary care indira DX & DISP Disposition: Discharge Departure Impression: Primary Impression: Uncontrolled hypertension Additional Impressions: Hypokalemia, Dehydration Condition: Stable Scripts Clonidine HCl (Clonidine HCl) 0.1 Mg Tablet 1 TAB PO HS for 30 Days, #30 TAB 0 Refills Prov: JELLY EISENBERG NP 11/03/24 Additional Instructions: Follow-up with primary care provider in 1 to 2 days. Take medications as directed here in the emergency room. Okay to continue home medications unless otherwise discussed during your visit in the emergency room today. Return to your nearest emergency room if symptoms worsen or if there is no improvement. Call 911 if you need immediate assistance. Take Tylenol or Motrin [id number] as needed and if no contraindications are present. Increase oral hydration. A wound culture or urine culture was ordered here in the emergency room department please follow-up with primary care provider and advise them to get repeat ports from our facility. If you had any [place] wrap/splints that were applied here, please do not remove them until you see your primary care or specialty. Take clonidine as directed daily for your blood pressure. See your primary care doctor for follow up and management of your blood pressure in the next 1-2 days. Increase your water intake. Referrals: ADDY SHAW MD (PCP) Time of Disposition: 17:20 I have reviewed the case, and I agree with, Diagnosis and Plan JELLY EISENBERG NP November 03, 2024 15:07
[2024-11-03 15:21] LABS: BASOPHILS # (AUTO) 0.12 K/uL (0.00-0.20); BASOPHILS % (AUTO) 1.6 % (0.0-5.0); EOSINOPHILS # (AUTO) 0.34 K/uL (0.00-0.70); EOSINOPHILS % (AUTO) 4.4 % (0.0-8.0); HEMATOCRIT 41.6 % (36-48); IMMATURE GRANULOCYTE ABSOLUTE 0.02 K/uL (0-1); LYMPHOCYTES # (AUTO) 4.2 K/uL (1.0-4.8); LYMPHOCYTES % (AUTO) 53.8 % (21.0-51.0); MEAN CORPUSCULAR HEMOGLOBIN 30.7 pg (27.0-33.0); MEAN CORPUSCULAR HGB CONC 32.9 g/dL (32.0-36.0); MEAN CORPUSCULAR VOLUME 93.3 fL (79-99); MONOCYTES # (AUTO) 0.4 K/uL (0.1-1.0); MONOCYTES % (AUTO) 4.5 % (3.0-13.0); NEUTROPHILS # (AUTO) 2.7 K/uL (1.8-7.7); NEUTROPHILS % (AUTO) 35.4 % (40.0-77.0); PLATELET COUNT (AUTO) 243 K/uL (130-400); RED BLOOD CELL COUNT(AUTO) 4.46 MIL/uL (4.00-5.50); RED CELL DISTRIBUTION WIDTH 12.4 % (11.0-15.5); WHITE BLOOD COUNT (AUTO) 7.7 K/uL (4.8-10.8)
[2024-11-03 15:30] LABS: CREATININE 1.6 mg/dL (0.5-1.0); MAGNESIUM 2.3 mg/dL (1.80-2.40); POTASSIUM 3.1 mmol/L (3.5-5.1)
--- NOTE | 2024-11-03 15:35 | EKG ---
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
[2024-11-03] MEDS: cloNIDine HCL 0.1 MG TABLET PO ONE (15:38)
[2024-11-03 15:47] LABS: B-TYPE NATRIURETIC PEPTIDE 12 pg/mL (0-100)
[2024-11-03] MEDS: PoTASSium BIcarbonate/CIT AC 25 MEQ TABLET.EFF PO ONE (16:00)
[2024-11-03 17:17] VITALS: BP 144/92; PULSE 59; RESP 14; TEMP 98.3; O2SAT 99
[2024-11-03] MEDS ORDERED: CLON0.1T PO (17:21)
== END 2024-11-03 17:46 | disposition home or self-care (01) ==
LOC: EDH 14:53
DX: I11.9 Hypertensive heart disease without heart failure (principal); E86.0 Dehydration; E87.6 Hypokalemia; E03.9 Hypothyroidism, unspecified; Z79.1 Long term (current) use of non-steroidal anti-inflammatories (NSAID); Z79.899 Other long term (current) drug therapy; Z90.49 Acquired absence of other specified parts of digestive tract; Z90.710 Acquired absence of both cervix and uterus; Z98.890 Other specified postprocedural states
CPT/HCPCS: 36415; 80048; 82948; 83735; 83880; 84484; 85025; 93005; 99284